=== PATIENT | female | born 1985 ===

== ENCOUNTER 2016-08-01 11:10 | Emergency (ER) | payer MEDICAID ==
[2016-08-01 11:24] VITALS: BP 109/68; PULSE 97; TEMP 97; O2SAT 100
[2016-08-01 11:25] VITALS: BMI 25.1
--- NOTE | 2016-08-01 11:59 | ED PDOC ---
HPI: Skin/Bite Injury Time Seen by Provider: 08/01/16 11:48 History Per: Patient (Painful vesicular rash on inner thighs extending to perineal area. Noticed about 1 weak ago. Initially started as vesicles clear fluid. Last time sexually active 3 weeks ago. Denies vaginal discharge.) Onset/Duration Of Symptoms: Other (1 week) Current Symptoms Are (Timing): Still Present Location Of Injury: Right: Labia, Perineum, Left: Labia, Perineum Quality Of Symptoms: Painful Severity: Moderate Past Medical History Vital Signs: Last Vital Signs Temp 97 F L 08/01/16 11:23 Pulse 97 H 08/01/16 11:23 Resp BP 109/68 08/01/16 11:23 Pulse Ox 100 08/01/16 11:23 - Medical History PMH: Back Problems (chronic lower back pain, see HPI ), Migraine - Family History Family History: States: Unknown Family Hx - Immunization History Hx Tetanus Toxoid Vaccination: No Hx Influenza Vaccination: No Hx Pneumococcal Vaccination: No - Home Medications Home Medications: Ambulatory Orders Medication Instructions Recorded Acetaminophen/Oxycodone Hydr 1 tab PO Q8 #15 tab 12/29/12 [Percocet 325 mg-5 mg] Clindamycin [Cleocin] 300 mg PO QID #28 cap 12/29/12 DiphenhydrAMINE [Benadryl] 25 mg PO Q4H PRN #30 cap 12/29/12 Ondansetron [Zofran Odt] 4 mg PO Q6H PRN #30 odt 12/29/12 Penicillin Vk 12/29/12 Tramadol 12/29/12 Acetaminophen/Oxycodone Hydr 1 tab PO Q6 PRN #15 tab 12/11/13 [Percocet 325 mg-5 mg] Tramadol HCl [Ultram] 50 mg PO Q6 #15 tab 09/14/15 Amoxicillin/Clavulanate [Augmentin 1 tab PO Q12 #13 tab 11/11/15 875 MG-125 MG] Oxycodone HCl/Acetaminophen 1 tab PO Q6 PRN #12 tab 11/11/15 [Percocet 325 mg-5 mg] Clindamycin [Cleocin] 300 mg PO TID #30 cap 11/24/15 Ibuprofen [Motrin Tab] 800 mg PO Q8 PRN #20 tab 11/24/15 Ibuprofen [Motrin] 600 mg PO TID PRN #30 tab 02/18/16 diaZEpam [Valium] 5 mg PO Q8 PRN #12 tab 02/18/16 traMADol [Ultram] 50 mg PO Q8 PRN #12 tab 02/18/16 Valacyclovir HCl [Valtrex] 1 gm PO TID #30 tablet 08/01/16 traMADol [Ultram] 50 mg PO Q8 #10 tab 08/01/16 - Allergies Allergies/Adverse Reactions: Allergies Allergy/AdvReac Type Severity Reaction Status Date / Time No Known Allergies Allergy Verified 02/18/16 19:13 Review of Systems Constitutional: Negative for: Fever Genitourinary Female: Positive for: Rash. Negative for: Vaginal Discharge Physical Exam - Physical Exam Appears: Positive for: Non-toxic, No Acute Distress Pelvic Exam: Positive for: Other (Vesicular rash labia majora bilat extending to perineum. No discharge. No crusting) - ECG O2 Sat by Pulse Oximetry: 100 Disposition - Clinical Impression Clinical Impression: Genital herpes - Patient ED Disposition Is Patient to be Admitted: No Counseled Patient/Family Regarding: Diagnosis, Need For Followup, Rx Given - Disposition [facility] Disposition: Routine/Home Disposition Time: 12:02 Condition: FAIR Prescriptions: traMADol [Ultram] 50 mg PO Q8 #10 tab Valacyclovir HCl [Valtrex] 1 gm PO TID #30 tablet Instructions: Genital Herpes Simplex (ED)
== END 2016-08-01 12:30 | disposition home or self-care (01) ==
LOC: H.ER 11:10
DX: B00.1 Herpesviral vesicular dermatitis (principal)

== ENCOUNTER 2016-10-12 20:34 | Emergency (ER) | payer MEDICAID ==
[2016-10-12 20:34] VITALS: BMI 25.1
[2016-10-12 20:44] VITALS: BP 93/59; PULSE 92; RESP 18; TEMP 98.4; O2SAT 98
[2016-10-12] MEDS ORDERED: Sodium Chloride 0.9% 1,000 ML IV STA (22:45)
--- NOTE | 2016-10-12 22:46 | ED PDOC ---
HPI: Abdomen Time Seen by Provider: 10/12/16 22:21 Chief Complaint (Nursing): Abdominal Pain Chief Complaint (Provider): abdominal pain History Per: Patient History/Exam Limitations: no limitations Onset/Duration Of Symptoms: Days (1) Current Symptoms Are (Timing): Still Present Location Of Pain/Discomfort: RUQ Quality Of Discomfort: Sharp, "Pain" Associated Symptoms: Nausea Additional History Per: Patient Additional Complaint(s): 30 y/o female presents for eval of intermittent right upper abdominal pain x 1 day. Associated one episode of nonbilious vomiting. Denies fever, chest pain, shortness of breath, palpitations, recent travel, leg pain/swelling. No relief with Tylenol PO. Past Medical History Reviewed: Historical Data, Nursing Documentation, Vital Signs Vital Signs: Last Vital Signs Temp 98.4 F 10/12/16 20:41 Pulse 92 H 10/12/16 20:41 Resp 18 10/12/16 20:41 BP 93/59 L 10/12/16 20:41 Pulse Ox 98 10/13/16 00:20 - Medical History PMH: Back Problems (chronic lower back pain, see HPI ), Migraine - Family History Family History: States: Unknown Family Hx - Immunization History Hx Tetanus Toxoid Vaccination: No Hx Influenza Vaccination: No Hx Pneumococcal Vaccination: No - Home Medications Home Medications: Ambulatory Orders Medication Instructions Recorded Tramadol HCl/Acetaminophen 1 each PO Q4 #10 tablet 09/07/16 [Ultracet Tablet] Ondansetron ODT [Zofran ODT] 4 mg PO Q8 PRN #10 odt 10/13/16 traMADol [Ultram] 50 mg PO Q8 PRN #12 tab 10/13/16 - Allergies Allergies/Adverse Reactions: Allergies Allergy/AdvReac Type Severity Reaction Status Date / Time No Known Allergies Allergy Verified 10/12/16 23:27 Review of Systems ROS Statement: Except As Marked, All Systems Reviewed And Found Negative Gastrointestinal: Positive for: Abdominal Pain Physical Exam - Reviewed Nursing Documentation Reviewed: Yes Vital Signs Reviewed: Yes - Physical Exam Appears: Positive for: Well, Non-toxic, No Acute Distress Head Exam: Positive for: ATRAUMATIC, NORMAL INSPECTION, NORMOCEPHALIC Skin: Positive for: Normal Color Eye Exam: Positive for: Normal appearance ENT: Positive for: Normal ENT Inspection Cardiovascular/Chest: Positive for: Regular Rate, Rhythm Respiratory: Positive for: Normal Breath Sounds Gastrointestinal/Abdominal: Positive for: Bowel Sounds, Soft, Tenderness (RUQ) Back: Positive for: Normal Inspection Extremity: Positive for: Normal ROM Neurologic/Psych: Positive for: Alert, Oriented - Laboratory Results Result Diagrams: 10/12/16 23:40 10/12/16 23:40 - ECG O2 Sat by Pulse Oximetry: 98 - Progress ED Course And Treament: labs, urine, RUQ u/s, IV toradol, IV fluids EXAM: US Abdomen Limited, Right Upper Quadrant CLINICAL HISTORY: 30 years old, female; Pain; Abdominal pain; Epigastric; Additional info: Ruq pain TECHNIQUE: Real-time ultrasound of the right upper quadrant with image documentation. COMPARISON: No relevant prior studies available. FINDINGS: Liver: Enlarged, 18.4 cm. No mass. No intrahepatic ductal dilatation. Gallbladder: Contracted. Gallstones. No wall thickening. No pericholecystic fluid. No sonographic Sevilla's sign. Common bile duct: No dilatation. No stones. Pancreas: Unremarkable as visualized. Right kidney: Normal echogenicity. No hydronephrosis. IMPRESSION: 1. Cholelithiasis. 2. Incidental/non-acute findings are described above. Patient states little improvement of pain after toradol given, Percocet PO ordered. On re-eval, patient states pain improved. Patient educated on findings, discharged with rx Tramadol, Zofran. Advised follow up PMD/surgery. Diet modification. Return to ED for worsening/concerning symptoms. Disposition - Clinical Impression Clinical Impression: Gallstones - Patient ED Disposition Is Patient to be Admitted: No Counseled Patient/Family Regarding: Studies Performed, Diagnosis, Need For Followup, Rx Given - Disposition Referrals: Marcos Taylor MD [Staff Provider] - Disposition: Routine/Home Disposition Time: 01:30 Condition: IMPROVED Additional Instructions: Follow up with primary doctor in 2-3 days. Take Ibuprofen (motrin) every 6-8 hours as needed for moderate pain. Take Tramadol as directed, as needed for severe pain only. Return to ED for worsening/concerning symptoms. Prescriptions: Ondansetron ODT [Zofran ODT] 4 mg PO Q8 PRN #10 odt PRN Reason: Nausea/Vomiting traMADol [Ultram] 50 mg PO Q8 PRN #12 tab PRN Reason: Pain, Severe (8-10) Instructions: Biliary Colic (ED), Gallstones (ED)
[2016-10-12 23:43] LABS: BASO # 0.1 K/uL (0.0-0.2); BASO % 0.7 % (0.0-2.0); EOS # 0.2 K/uL (0.0-0.7); EOS % 1.4 % (0.0-4.0); HEMATOCRIT 39.2 % (34.0-47.0); LYMPH # 3.7 K/uL (1.0-4.3); LYMPH % 31.6 % (20.0-40.0); MEAN CELL VOLUME 85.9 fl (81.0-99.0); MEAN CORPUSCULAR HEMOGLOBIN 27.2 pg (27.0-31.0); MEAN CORPUSCULAR HGB CONC 31.6 g/dL (33.0-37.0); MEAN PLATELET VOLUME 8.6 fl (7.2-11.7); MONO # 0.6 K/uL (0.0-0.8); MONO % 5.4 % (0.0-10.0); NEUT # 7.1 K/uL (1.8-7.0); NEUT % 60.9 % (50.0-75.0); NRBC % 0.1 % (0.0-0.0); RED CELL DISTRIBUTION WIDTH 14.1 % (11.5-14.5); WHITE BLOOD COUNT 11.7 K/uL (4.8-10.8)
[2016-10-12 23:50] LABS: ALB/GLOB RATIO 1.5 (1.0-2.1); ALKALINE PHOSPHATASE 56 U/L (38-126); ALT/SGPT 41 U/L (9-52); AST/SGOT 19 U/L (14-36); BILIRUBIN,TOTAL 0.4 mg/dl (0.2-1.3); BLOOD UREA NITROGEN 20 mg/dl (7-17); CALCIUM 9.4 mg/dL (8.4-10.2); CARBON DIOXIDE 25 mmol/L (22-30); CHLORIDE 107 mmol/L (98-107); GFR AFRICAN-AMERICAN > 60; GLUCOSE,RANDOM 88 mg/dL (65-105); LIPASE 91 U/L (23-300); POTASSIUM 4.4 MMOL/L (3.6-5.0); SODIUM 143 mmol/l (132-148); TOTAL PROTEIN 7.9 G/DL (6.3-8.2)
--- NOTE | 2016-10-13 00:05 | US ---
EXAM: US Abdomen Limited, Right Upper Quadrant CLINICAL HISTORY: 30 years old, female; Pain; Abdominal pain; Epigastric; Additional info: Ruq pain TECHNIQUE: Real-time ultrasound of the right upper quadrant with image documentation. COMPARISON: No relevant prior studies available. FINDINGS: Liver: Enlarged, 18.4 cm. No mass. No intrahepatic ductal dilatation. Gallbladder: Contracted. Gallstones. No wall thickening. No pericholecystic fluid. No sonographic Sevilla's sign. Common bile duct: No dilatation. No stones. Pancreas: Unremarkable as visualized. Right kidney: Normal echogenicity. No hydronephrosis. IMPRESSION: 1. Cholelithiasis. 2. Incidental/non-acute findings are described above.
[2016-10-13 00:10] LABS: PARTIAL THROMBOPLASTIN TIME 27.6 Seconds (25.6-37.1)
[2016-10-13] MEDS ORDERED: Oxycodone/Acetaminophen 5/325 mg Tab PO ONE (00:30)
== END 2016-10-13 01:57 | disposition home or self-care (01) ==
LOC: H.ER 20:34
DX: K80.20 Calculus of gallbladder without cholecystitis without obstruction (principal); G89.29 Other chronic pain; R11.10 Vomiting, unspecified

== ENCOUNTER 2016-10-17 19:50 | Inpatient (IN) | payer MEDICAID ==
[2016-10-17 19:50] VITALS: BMI 25.1
--- NOTE | 2016-10-17 21:14 | ED PDOC ---
HPI: Abdomen Time Seen by Provider: 10/17/16 20:35 Chief Complaint (Nursing): Abdominal Pain Chief Complaint (Provider): Abdominal pain History Per: Patient Additional Complaint(s): Pt. is a 30 yo female, no PMH, presents to ED for evaluation of RUQ pain radiating into back x2 days. Pt. was seen in ED 2 days ago for same complaint and diagnosed with cholelithiasis. No relief at home with RX Tramadol and Zofran. Was seen by PMD and was told to come to ED for re-evaluation due to worsening pain Past Medical History Reviewed: Nursing Documentation, Vital Signs Vital Signs: Last Vital Signs Temp 98.4 F 10/17/16 20:23 Pulse 82 10/17/16 20:23 Resp 16 10/17/16 20:23 BP 151/76 H 10/17/16 20:23 Pulse Ox 100 10/17/16 21:14 - Medical History PMH: Back Problems (chronic lower back pain, see HPI ), Migraine - Surgical History Surgical History: No Surg Hx - Family History Family History: States: Unknown Family Hx - Living Arrangements Living Arrangements: With Family - Social History Current smoker - smoking cessation education provided: No Alcohol: None Drugs: Denies - Immunization History Hx Tetanus Toxoid Vaccination: No Hx Influenza Vaccination: No Hx Pneumococcal Vaccination: No - Home Medications Home Medications: Ambulatory Orders Medication Instructions Recorded Tramadol HCl/Acetaminophen 1 each PO Q4 #10 tablet 09/07/16 [Ultracet Tablet] Ondansetron ODT [Zofran ODT] 4 mg PO Q8 PRN #10 odt 10/13/16 traMADol [Ultram] 50 mg PO Q8 PRN #12 tab 10/13/16 - Allergies Allergies/Adverse Reactions: Allergies Allergy/AdvReac Type Severity Reaction Status Date / Time No Known Allergies Allergy Verified 10/17/16 20:26 Review of Systems ROS Statement: Except As Marked, All Systems Reviewed And Found Negative Gastrointestinal: Positive for: Nausea, Abdominal Pain Physical Exam - Reviewed Nursing Documentation Reviewed: Yes Vital Signs Reviewed: Yes - Physical Exam Appears: Positive for: Non-toxic, No Acute Distress, Uncomfortable Head Exam: Positive for: ATRAUMATIC, NORMAL INSPECTION, NORMOCEPHALIC Skin: Positive for: Normal Color, Warm, DRY Eye Exam: Positive for: EOMI, Normal appearance, PERRL ENT: Positive for: Normal ENT Inspection Neck: Positive for: Normal, Painless ROM Cardiovascular/Chest: Positive for: Regular Rate, Rhythm Respiratory: Positive for: CNT, Normal Breath Sounds Gastrointestinal/Abdominal: Positive for: Bowel Sounds, Soft, Tenderness ((+) Sevilla's sign) Back: Positive for: Normal Inspection Extremity: Positive for: Normal ROM Neurologic/Psych: Positive for: Alert, Oriented - Laboratory Results Result Diagrams: 10/17/16 21:36 10/17/16 21:36 - ECG O2 Sat by Pulse Oximetry: 100 Medical Decision Making Medical Decision Making: Iv access established and treatment initiated with IVF, Toradol and Zofran. On re-eval, Pt still with complaint sof pain. Administered 2 mg Morphine IV. CBC and COMP resulted, WBC 11.6 US IMPRESSION: Fatty infiltration of an enlarged liver. Multiple stones within the gallbladder, which is contracted, consistent with postprandial state Otherwise, unremarkable sonographic evaluation of the right upper quadrant, as detailed above. Limited evaluation of the pancreas, secondary to overlying bowel gas. Surgeon, Dr. Chaves, consulted and case discussed. Agreed with admission at this time. Hospitalist contacted and Dr. Licea presented to see and evaluate Pt at bedside. Arrangements made for admission. psychiatry resident contacted and made aware of case. Disposition - Clinical Impression Clinical Impression: Cholelithiasis - Patient ED Disposition Is Patient to be Admitted: Yes - Disposition Disposition Time: 01:19 Condition: STABLE
[2016-10-17 21:41] LABS: BASO # 0.1 K/uL (0.0-0.2); BASO % 0.9 % (0.0-2.0); EOS # 0.1 K/uL (0.0-0.7); EOS % 1.1 % (0.0-4.0); HEMATOCRIT 36.1 % (34.0-47.0); LYMPH # 3.3 K/uL (1.0-4.3); LYMPH % 28.7 % (20.0-40.0); MEAN CELL VOLUME 85.9 fl (81.0-99.0); MEAN CORPUSCULAR HEMOGLOBIN 27.4 pg (27.0-31.0); MEAN CORPUSCULAR HGB CONC 31.9 g/dL (33.0-37.0); MEAN PLATELET VOLUME 8.2 fl (7.2-11.7); MONO # 0.7 K/uL (0.0-0.8); MONO % 6.2 % (0.0-10.0); NEUT # 7.3 K/uL (1.8-7.0); NEUT % 63.1 % (50.0-75.0); RED CELL DISTRIBUTION WIDTH 13.7 % (11.5-14.5); WHITE BLOOD COUNT 11.6 K/uL (4.8-10.8)
[2016-10-17 21:59] LABS: RBC URINE 3 /hpf (0-3); URINE BACTERIA RARE (<OCC); URINE BILIRUBIN NEGATIVE (NEGATIVE); URINE BLOOD NEGATIVE (NEGATIVE); URINE COLOR YELLOW (YELLOW); URINE GLUCOSE (UA) NEG (Normal); URINE KETONE NEGATIVE (NEGATIVE); URINE LEUKOCYTE ESTERASE NEG Leu/uL (Negative); URINE PROTEIN 30 mg/dL (NEGATIVE); WBC URINE 3 /hpf (0-5)
[2016-10-17 22:11] LABS: ALB/GLOB RATIO 1.3 (1.0-2.1); ALKALINE PHOSPHATASE 54 U/L (38-126); ALT/SGPT 35 U/L (9-52); AMYLASE 97 U/L (30-110); AST/SGOT 21 U/L (14-36); BILIRUBIN,TOTAL 0.3 mg/dl (0.2-1.3); BLOOD UREA NITROGEN 14 mg/dl (7-17); CALCIUM 8.7 mg/dL (8.4-10.2); CARBON DIOXIDE 26 mmol/L (22-30); CHLORIDE 107 mmol/L (98-107); GFR AFRICAN-AMERICAN > 60; GLUCOSE,RANDOM 100 mg/dL (65-105); LIPASE 67 U/L (23-300); POTASSIUM 3.8 MMOL/L (3.6-5.0); SODIUM 141 mmol/l (132-148); TOTAL PROTEIN 6.9 G/DL (6.3-8.2)
--- NOTE | 2016-10-17 23:12 | US ---
EXAM: US Abdomen Limited, Right Upper Quadrant CLINICAL HISTORY: 30 years old, female; Pain; Abdominal pain; Epigastric; Additional info: R/O acute yanick TECHNIQUE: Real-time ultrasound of the right upper quadrant with image documentation. COMPARISON: US - RIGHT UPPER QUADRANT 10/12/2016 10:56:10 PM FINDINGS: Liver: Increased in echogenicity and size measuring 18.4 cm in longitudinal dimension. No mass. No intrahepatic bile duct dilation. Gallbladder: Contracted, with multiple shadowing stones, consistent with postprandial state. Common bile duct: No stones. No dilation, measuring 3 mm. Pancreas: Visualization of the pancreas is limited by overlying bowel gas. Right kidney: Unremarkable echogenicity and size measuring 11.4 x 5.4 x 4.3 cm. No obstructing stones. No solid mass. No hydronephrosis. IMPRESSION: Fatty infiltration of an enlarged liver. Multiple stones within the gallbladder, which is contracted, consistent with postprandial state Otherwise, unremarkable sonographic evaluation of the right upper quadrant, as detailed above. Limited evaluation of the pancreas, secondary to overlying bowel gas.
--- NOTE | 2016-10-18 00:15 | CP.PCM.CON ---
<Luke Chavez Mariano - Last Filed: 10/18/16 06:25> History of Present Illness - History of Present Illness History of Present Illness: General Surgery: Dr Catalan Pt is a 30F with no significant PMH/PSH. Recently presented to ED 3 days ago for RUQ pain with N/V. Dx with cholelithiasis and sent home with tramadol and outpatient follow up. Pt pain did not subside so her PMD sent her back to [facility] for re-evaluation. Pt reports she has continued to have intermittent RUQ pain, with associated nausea, which radiates to the right upper back. The pain is worse after eating and becomes a 10/10. It has become progressively more consistent over the past 24 hours. She has been unable to tolerate PO intake since monday morning. She denies any associated f/c, sob, chest pain, diarrhea or constipation, dysuria, or abnormal menstrual bleeding. PMH: none PSH: none LMP: July - on implant control LUE Review of Systems - Review of Systems All systems: reviewed and no additional remarkable complaints except (as per hpi ) Past Patient History - Past Social History Smoking Status: Never Smoked - NEUROLOGICAL Hx Migraine: Yes - PSYCHIATRIC Hx Substance Use: No - ANESTHESIA Hx Anesthesia: No Hx Anesthesia Reactions: No Meds Allergies/Adverse Reactions: Allergies Allergy/AdvReac Type Severity Reaction Status Date / Time No Known Allergies Allergy Verified 10/17/16 20:26 - Medications Medications: Current Medications Ampicillin Sodium/Sulbactam (Sodium 1.5 gm/ Sodium Chloride) 100 mls @ 100 mls/ hr IVPB Q6 RAMANDEEP Sodium Chloride (Sodium Chloride 0.9%) 1,000 mls @ 100 mls/hr IV .Q10H RAMANDEEP Stop: 10/19/16 00:11 Morphine Sulfate (Morphine) 4 mg IVP Q4 PRN PRN Reason: Pain, moderate (4-7) Ondansetron HCl (Zofran Inj) 4 mg IVP Q4 PRN PRN Reason: Nausea/Vomiting Physical Exam - Constitutional Appears: Non-toxic, No Acute Distress - Eye Exam Eye Exam: absent: Scleral icterus - ENT Exam ENT Exam: Mucous Membranes Dry - Respiratory Exam Respiratory Exam: absent: Accessory Muscle Use, Respiratory Distress - Cardiovascular Exam Cardiovascular Exam: REGULAR RHYTHM - GI/Abdominal Exam GI & Abdominal Exam: Soft, Tenderness (RUQ >> epigastric). absent: Distended, Firm, Guarding, Rebound, Rigid - Extremities Exam Extremities exam: Negative for: calf tenderness, pedal edema - Neurological Exam Neurological exam: Alert, Oriented x3 - Psychiatric Exam Psychiatric exam: Normal Affect, Normal Mood - Skin Skin Exam: Normal Color, Warm Results - Vital Signs Recent Vital Signs: Last Vital Signs Temp 98.4 F 10/17/16 20:23 Pulse 82 10/17/16 20:23 Resp 16 10/17/16 20:23 BP 151/76 H 10/17/16 20:23 Pulse Ox 100 10/17/16 21:14 - Labs Result Diagrams: 10/17/16 21:36 10/17/16 21:36 Labs: Laboratory Results - last 24 hr 10/17/16 10/17/16 10/17/16 21:36 21:36 21:36 WBC 11.6 H RBC 4.20 Hgb 11.5 L Hct 36.1 MCV 85.9 MCH 27.4 MCHC 31.9 L RDW 13.7 Plt Count 251 MPV 8.2 Neut % (Auto) 63.1 Lymph % (Auto) 28.7 Greer % (Auto) 6.2 Eos % (Auto) 1.1 Baso % (Auto) 0.9 Neut # 7.3 H Lymph # 3.3 Greer # 0.7 Eos # 0.1 Baso # 0.1 Sodium 141 Potassium 3.8 Chloride 107 Carbon Dioxide 26 Anion Gap 12 BUN 14 Creatinine 0.6 L Est GFR ( Amer) > 60 Est GFR (Non-Af Amer) > 60 Random Glucose 100 Calcium 8.7 Total Bilirubin 0.3 AST 21 ALT 35 Alkaline Phosphatase 54 Total Protein 6.9 Albumin 3.9 Globulin 3.0 Albumin/Globulin Ratio 1.3 Amylase 97 Lipase 67 Urine Color Yellow Urine Clarity Cloudy Urine pH 6.0 Ur Specific Darrington 1.030 Urine Protein 30 Urine Glucose (UA) Neg Urine Ketones Negative Urine Blood Negative Urine Nitrate Negative Urine Bilirubin Negative Urine Urobilinogen 2.0 H Ur Leukocyte Esterase Neg Urine RBC (Auto) 3 Urine Microscopic WBC 3 Ur Squamous Epith Cells 17 H Urine Bacteria Rare Assessment & Plan - Assessment and Plan (Free Text) Assessment: 30F with symptomatic cholelithiasis Plan: NPO abx IV fluids anti-emetics and pain control PRN will likely need laparoscopic cholecystectomy will d/w attending Dr Hossein Chavez, PGY2 - Date & Time Date: 10/18/16 Time: 06:31 <Po Catalan - Last Filed: 10/18/16 11:38> History of Present Illness - History of Present Illness History of Present Illness: Patient was seen and examined at the bedside. Agree with resident's note above. Meds - Medications Medications: Current Medications Ampicillin Sodium/Sulbactam (Sodium 1.5 gm/ Sodium Chloride) 100 mls @ 100 mls/ hr IVPB Q6 RAMANDEEP Last Admin: 10/18/16 10:32 Dose: 100 mls/hr Sodium Chloride (Sodium Chloride 0.9%) 1,000 mls @ 100 mls/hr IV .Q10H RAMANDEEP Stop: 10/19/16 00:11 Morphine Sulfate (Morphine) 4 mg IVP Q3H PRN PRN Reason: Pain, moderate (4-7) Last Admin: 10/18/16 10:29 Dose: 4 mg Nicotine (Nicoderm Cq) 1 patch TD DAILY [facility] Last Admin: 10/18/16 08:33 Dose: 1 patch Ondansetron HCl (Zofran Inj) 4 mg IVP Q4 PRN PRN Reason: Nausea/Vomiting Results - Vital Signs Recent Vital Signs: Last Vital Signs Temp 97.8 F 10/18/16 08:35 Pulse 64 10/18/16 08:35 Resp 20 10/18/16 08:35 BP 100/64 10/18/16 08:35 Pulse Ox 99 10/18/16 08:35 - Labs Result Diagrams: 10/18/16 05:55 10/18/16 05:55 Labs: Laboratory Results - last 24 hr 10/18/16 10/18/16 10/18/16 03:19 05:55 05:55 WBC 10.6 RBC 4.01 Hgb 11.2 L Hct 34.5 MCV 85.9 MCH 28.0 MCHC 32.6 L RDW 13.7 Plt Count 232 MPV 8.5 Neut % (Auto) 56.5 Lymph % (Auto) 35.7 Greer % (Auto) 6.1 Eos % (Auto) 1.4 Baso % (Auto) 0.3 Neut # 6.0 Lymph # 3.8 Greer # 0.6 Eos # 0.1 Baso # 0.0 PT 11.8 INR 1.0 APTT 27.7 Sodium 142 Potassium 3.8 Chloride 106 Carbon Dioxide 28 Anion Gap 11 BUN 13 Creatinine 0.7 Est GFR ( Amer) > 60 Est GFR (Non-Af Amer) > 60 Random Glucose 80 Calcium 8.3 L Total Bilirubin 0.5 AST 15 ALT 34 Alkaline Phosphatase 47 Total Protein 6.3 Albumin 3.6 Globulin 2.7 Albumin/Globulin Ratio 1.3 Beta HCG, Quant < 2.39 - Imaging and Cardiology US - abdomen Status: Image reviewed by me, Report reviewed by me Assessment & Plan - Assessment and Plan (Free Text) Plan: - Clear liquid diet - NPO after midnight - IV fluids - pain control - Unasyn - To OR tomorrow in am for cholecystectomy - Will follow
[2016-10-18] MEDS ORDERED: Sodium Chloride 0.9% 1,000 ML IV STA (00:30)
--- NOTE | 2016-10-18 01:29 | CP.PCM.HP ---
History of Present Illness - History of Present Illness History of Present Illness: PCP: Julio C Brito MD Chief Complaint: RUQ abdominal Pain HPI: 30 years old female with hx of Migraine and chronic lower back pain was diagnosed and discharged with Cholelithiasis 2 days ago in ED. She now returns with the persistent, sharp, RUQ abdominal pain radiating to the right back , not relieved with Toradol. she was seen by her PMD who advised her to return to the ED for evaluation. She refers nausea but no vomits , headaches nor fever. PMH: Migraine; Chronic low back pain; Cholelithiasis PSH: [place] tooth extraction SH: Smokes 8-9 cigarettes; No illegal drug use; No alcohol; Works at [employer] FH: Unknown family hx Allergies: NKDA Present on Admission - Present on Admission Any Indicators Present on Admission: No History of DVT/PE: No History of Uncontrolled Diabetes: No Urinary Catheter: No Decubitus Ulcer Present: No Review of Systems - Constitutional Constitutional: absent: Anorexia, Chills, Fever, Frequent Falls - EENT Eyes: Requires Corrective Lenses. absent: Blurred Vision, Dry Eye, Floaters, Itchy Eyes Ears: absent: Decreased Hearing, Ear Discharge, Ear Pain, Tinnitus Nose/Mouth/Throat: absent: Epistaxis, Nasal Congestion, Nasal Discharge - Cardiovascular Cardiovascular: absent: Chest Pain, Claudication, Dyspnea, Edema - Respiratory Respiratory: absent: Cough, Dyspnea, Wheezing, Stridor - Gastrointestinal Gastrointestinal: Abdominal Pain, Nausea. absent: Bloating, Constipation, Diarrhea, Vomiting - Genitourinary Genitourinary: absent: Dysuria, Flank Pain, Hematuria - Musculoskeletal Musculoskeletal: absent: Arthralgias, Myalgias, Numbness, Stiffness - Integumentary Integumentary: absent: Pruritus, Rash, Skin Ulcer, Sores, Striae, Swelling - Neurological Neurological: absent: Confusion, Dizziness, Focal Weakness, Headaches - Psychiatric Psychiatric: absent: Anxiety, Depression, Panic Attacks - Endocrine Endocrine: absent: Palpitations, Polydipsia, Polyphagia, Polyuria - Hematologic/Lymphatic Hematologic: absent: Easy Bleeding, Easy Bruising Past Patient History - Past Medical History & Family History Past Medical History?: Yes - Past Social History Smoking Status: Light Smoker < 10 Cigarettes Daily Chewing Tobacco Use: No Cigar Use: No Alcohol: None Drugs: Denies Home Situation {Lives}: With Family - CARDIAC Hx Cardiac Disorders: No - PULMONARY Hx Respiratory Disorders: No - NEUROLOGICAL Hx Migraine: Yes - HEENT Hx HEENT Problems: No - RENAL Hx Chronic Kidney Disease: No - ENDOCRINE/METABOLIC Hx Endocrine Disorders: No - HEMATOLOGICAL/ONCOLOGICAL Hx Blood Disorders: No - INTEGUMENTARY Hx Dermatological Problems: No - MUSCULOSKELETAL/RHEUMATOLOGICAL Hx Musculoskeletal Disorders: No - GENITOURINARY/GYNECOLOGICAL Hx Genitourinary Disorders: No - PSYCHIATRIC Hx Psychophysiologic Disorder: No Hx Substance Use: No - SURGICAL HISTORY Hx Surgeries: No - ANESTHESIA Hx Anesthesia: No Hx Anesthesia Reactions: No Meds Allergies/Adverse Reactions: Allergies Allergy/AdvReac Type Severity Reaction Status Date / Time No Known Allergies Allergy Verified 10/17/16 20:26 Physical Exam - Constitutional Appears: No Acute Distress - Head Exam Head Exam: NORMOCEPHALIC - Eye Exam Eye Exam: EOMI, Normal appearance Pupil Exam: NORMAL ACCOMODATION, PERRL - ENT Exam ENT Exam: Mucous Membranes Moist, Normal Exam, Normal External Ear Exam, Normal Oropharynx - Neck Exam Neck exam: Positive for: Full Rom, Normal Inspection. Negative for: Lymphadenopathy, Tenderness - Respiratory Exam Respiratory Exam: Clear to Auscultation Bilateral. absent: Rales, Wheezes, NORMAL BREATHING PATTERN - Cardiovascular Exam Cardiovascular Exam: +S1, +S2. absent: Gallop, REGULAR RHYTHM, RRR - GI/Abdominal Exam Additional comments: Flat, Soft, tender at the RUQ, no rebound no guarding, no viceromegaleas - Rectal Exam Rectal Exam: Deferred - Extremities Exam Extremities exam: Positive for: calf tenderness, normal inspection. Negative for: full ROM, joint swelling - Back Exam Back exam: NORMAL INSPECTION. absent: CVA tenderness (L), CVA tenderness (R) - Neurological Exam Neurological exam: Alert, CN II-XII Intact, Oriented x3, Reflexes Normal - Psychiatric Exam Psychiatric exam: Anxious, Normal Affect, Normal Mood - Skin Skin Exam: Dry, Intact, Normal Color, Warm Results - Vital Signs Recent Vital Signs: Last Vital Signs Temp 98.4 F 10/17/16 20:23 Pulse 82 10/17/16 20:23 Resp 16 10/17/16 20:23 BP 151/76 H 10/17/16 20:23 Pulse Ox 100 10/18/16 01:25 - Labs Result Diagrams: 10/17/16 21:36 10/17/16 21:36 Labs: Laboratory Results - last 24 hr 10/17/16 10/17/16 10/17/16 21:36 21:36 21:36 WBC 11.6 H RBC 4.20 Hgb 11.5 L Hct 36.1 MCV 85.9 MCH 27.4 MCHC 31.9 L RDW 13.7 Plt Count 251 MPV 8.2 Neut % (Auto) 63.1 Lymph % (Auto) 28.7 [place] % (Auto) 6.2 Eos % (Auto) 1.1 Baso % (Auto) 0.9 Neut # 7.3 H Lymph # 3.3 [place] # 0.7 Eos # 0.1 Baso # 0.1 Sodium 141 Potassium 3.8 Chloride 107 Carbon Dioxide 26 Anion Gap 12 BUN 14 Creatinine 0.6 L Est GFR ( Amer) > 60 Est GFR (Non-Af Amer) > 60 Random Glucose 100 Calcium 8.7 Total Bilirubin 0.3 AST 21 ALT 35 Alkaline Phosphatase 54 Total Protein 6.9 Albumin 3.9 Globulin 3.0 Albumin/Globulin Ratio 1.3 Amylase 97 Lipase 67 Urine Color Yellow Urine Clarity Cloudy Urine pH 6.0 Ur Specific [place] 1.030 Urine Protein 30 Urine Glucose (UA) Neg Urine Ketones Negative Urine Blood Negative Urine Nitrate Negative Urine Bilirubin Negative Urine Urobilinogen 2.0 H Ur Leukocyte Esterase Neg Urine RBC (Auto) 3 Urine Microscopic WBC 3 Ur Squamous Epith Cells 17 H Urine Bacteria Rare - Imaging and Cardiology US - abdomen Status: Report reviewed by me Additional comment: FINDINGS: Liver: Increased in echogenicity and size measuring 18.4 cm in longitudinal dimension. No mass. No intrahepatic bile duct dilation. Gallbladder: Contracted, with multiple shadowing stones, consistent with postprandial state. Common bile duct: No stones. No dilation, measuring 3 mm. Pancreas: Visualization of the pancreas is limited by overlying bowel gas. Right kidney: Unremarkable echogenicity and size measuring 11.4 x 5.4 x 4.3 cm. No obstructing stones. No solid mass. No hydronephrosis. IMPRESSION: Fatty infiltration of an enlarged liver. Multiple stones within the gallbladder, which is contracted, consistent with postprandial state Otherwise, unremarkable sonographic evaluation of the right upper quadrant, as detailed above. Limited evaluation of the pancreas, secondary to overlying bowel gas. Assessment & Plan - Assessment and Plan (Free Text) Assessment: #. Biliary Colic #. Cholelithi #. Migraine Plan: 30 years old female with hx of Migraine and chronic lower back pain was diagnosed and discharged with Cholelithiasis 2 days ago in ED. Returns with persistent, sharp, RUQ abdominal pain radiating to the right back , not relieved with Toradol. #. Biliary Colic secondary to the Cholelithiasis, r/o Cholecystitis - Consult Surgery Dr slade - Antibiotics Unasyn Q6hrs - Pain management - NPO - IV fluids #. Migraine - Pain management #. Stress ulcer prophylaxis with Pepcid #. DVT prophylaxis with SCD #. Code Status: Full - Date & Time Date: 10/18/16 Time: 01:
[2016-10-18 04:08] LABS: PARTIAL THROMBOPLASTIN TIME 27.7 Seconds (25.6-37.1)
[2016-10-18] MEDS: Ampicillin/Sulbactam 1.5 GM in Sodium Chloride 0.9% 100 ML IVPB SCH ×4 (04:10→21:18)
[2016-10-18 07:33] LABS: ALB/GLOB RATIO 1.3 (1.0-2.1); ALKALINE PHOSPHATASE 47 U/L (38-126); ALT/SGPT 34 U/L (9-52); AST/SGOT 15 U/L (14-36); BILIRUBIN,TOTAL 0.5 mg/dl (0.2-1.3); BLOOD UREA NITROGEN 13 mg/dl (7-17); CALCIUM 8.3 mg/dL (8.4-10.2); CARBON DIOXIDE 28 mmol/L (22-30); CHLORIDE 106 mmol/L (98-107); GFR AFRICAN-AMERICAN > 60; GLUCOSE,RANDOM 80 mg/dL (65-105); POTASSIUM 3.8 MMOL/L (3.6-5.0); SODIUM 142 mmol/l (132-148); TOTAL PROTEIN 6.3 G/DL (6.3-8.2)
[2016-10-18 07:54] LABS: BASO % 0.3 % (0.0-2.0); EOS # 0.1 K/uL (0.0-0.7); EOS % 1.4 % (0.0-4.0); HEMATOCRIT 34.5 % (34.0-47.0); LYMPH # 3.8 K/uL (1.0-4.3); LYMPH % 35.7 % (20.0-40.0); MEAN CELL VOLUME 85.9 fl (81.0-99.0); MEAN CORPUSCULAR HGB CONC 32.6 g/dL (33.0-37.0); MEAN PLATELET VOLUME 8.5 fl (7.2-11.7); MONO # 0.6 K/uL (0.0-0.8); MONO % 6.1 % (0.0-10.0); NEUT % 56.5 % (50.0-75.0); NRBC % 0.2 % (0.0-0.0); RED CELL DISTRIBUTION WIDTH 13.7 % (11.5-14.5); WHITE BLOOD COUNT 10.6 K/uL (4.8-10.8)
[2016-10-18] MEDS ORDERED: Pneumococcal 23-Valent Vaccine IM ONE (09:00)
[2016-10-18] MEDS: Sodium Chloride 0.9% 1,000 ML IV SCH ×2 (20:19→21:18)
[2016-10-19] MEDS: Ampicillin/Sulbactam 1.5 GM in Sodium Chloride 0.9% 100 ML IVPB SCH ×3 (04:16→21:52)
[2016-10-19] MEDS: Sodium Chloride 0.9% 1,000 ML IV SCH ×2 (05:54→20:15)
[2016-10-19 06:45] LABS: BASO % 0.6 % (0.0-2.0); EOS # 0.1 K/uL (0.0-0.7); EOS % 1.3 % (0.0-4.0); HEMATOCRIT 34.9 % (34.0-47.0); LYMPH # 2.9 K/uL (1.0-4.3); LYMPH % 34.5 % (20.0-40.0); MEAN CELL VOLUME 86.4 fl (81.0-99.0); MEAN CORPUSCULAR HEMOGLOBIN 27.3 pg (27.0-31.0); MEAN CORPUSCULAR HGB CONC 31.6 g/dL (33.0-37.0); MEAN PLATELET VOLUME 8.6 fl (7.2-11.7); MONO # 0.6 K/uL (0.0-0.8); MONO % 6.7 % (0.0-10.0); NEUT # 4.8 K/uL (1.8-7.0); NEUT % 56.9 % (50.0-75.0); NRBC % 0.1 % (0.0-0.0); RED CELL DISTRIBUTION WIDTH 13.9 % (11.5-14.5); WHITE BLOOD COUNT 8.4 K/uL (4.8-10.8)
[2016-10-19 06:53] LABS: ALB/GLOB RATIO 1.2 (1.0-2.1); ALKALINE PHOSPHATASE 46 U/L (38-126); ALT/SGPT 35 U/L (9-52); AST/SGOT 18 U/L (14-36); BILIRUBIN,TOTAL 0.8 mg/dl (0.2-1.3); BLOOD UREA NITROGEN 9 mg/dl (7-17); CALCIUM 8.4 mg/dL (8.4-10.2); CARBON DIOXIDE 28 mmol/L (22-30); CHLORIDE 106 mmol/L (98-107); GFR AFRICAN-AMERICAN > 60; GLUCOSE,RANDOM 78 mg/dL (65-105); POTASSIUM 3.9 MMOL/L (3.6-5.0); SODIUM 140 mmol/l (132-148)
[2016-10-19] MEDS ORDERED: Bupivacaine 0.5% Inj(30mL) ONE (08:45)
[2016-10-19] MEDS ORDERED: Midazolam 2 MG/2 ML VIAL ONE (09:14)
[2016-10-19] MEDS ORDERED: Propofol 10 mg/ml Inj (20 ML) ONE (09:14)
[2016-10-19] MEDS ORDERED: Rocuronium 10 mg/ml (5 ml) ONE (09:14)
[2016-10-19] MEDS ORDERED: Neostigmine Methylsulfate 3mg/3ml Syringe IV ONE (09:14)
[2016-10-19] MEDS ORDERED: Succinylcholine 200 mg/10 ml Inj IV ONE (09:15)
[2016-10-19] MEDS ORDERED: Ampicillin/Sulbactam 1.5 gm Inj IVPB ONE (09:50)
[2016-10-19] MEDS ORDERED: ePHEDrine 50 mg/ml Inj ONE (10:00)
[2016-10-19] MEDS ORDERED: Bupivacaine 0.5% 50 ML IJ ONE ×2 (10:08→10:39)
[2016-10-19] MEDS ORDERED: Lactated Ringer's 1,000 ML IV ONE ×2 (10:08→10:38)
[2016-10-19] MEDS ORDERED: Sodium Chloride 0.9% 1,000 ML IV ONE (10:39)
[2016-10-19] MEDS ORDERED: HYDROmorphone 0.5 mg/0.5 ml ISec ONE ×2 (10:54→11:08)
[2016-10-19] MEDS ORDERED: HYDROmorphone 0.5 mg/0.5 ml ISec IVP ONE ×2 (10:59→11:11)
--- NOTE | 2016-10-19 11:00 | PCM.SURG1 ---
Surgeon's Initial Post Op Note - Surgeon's Notes Surgeon: Dr. Catalan Machine Cloth Examiner: Manasa Moser, PGY-1; Mary Archer DPM Pre-Operative Diagnosis: Cholecystitis, cholelithiasis Operative Findings: See full operative report Post-Operative Diagnosis: same Operation Performed: Laparoscopic cholecystectomy Specimen/Specimens Removed: gallbladder Estimated Blood Loss: EBL {In ML}: 10 Date of Surgery/Procedure: 10/19/16 Time of Surgery/Procedure: 09:30
[2016-10-19] MEDS ORDERED: Lactated Ringer's 1,000 ML IV SCH (11:16)
[2016-10-19] MEDS ORDERED: HYDROmorphone 0.5 mg/0.5 ml ISec IVP PRN (11:16)
[2016-10-19] MEDS: Oxycodone/Acetaminophen 5/325 mg Tab PO PRN ×3 (12:49→21:54)
[2016-10-19] MEDS ORDERED: Benzocaine/Menthol (Cepacol) Lozenge PO PRN (16:01)
--- NOTE | 2016-10-19 16:01 | CP.PCM.PN ---
Subjective - Date & Time of Evaluation Date of Evaluation: 10/19/16 Time of Evaluation: 15:00 - Subjective Subjective: Pt seen post op No fever abd pain controlled no N/N wants to eat tolerated Clear liquid diet complains of sorethroat no CP no SOB Objective - Vital Signs/Intake and Output Vital Signs (last 24 hours): Temp Pulse Resp BP Pulse Ox 98.5 F 99 H 18 104/65 98 10/19/16 14:40 10/19/16 14:40 10/19/16 14:40 10/19/16 14:40 10/19/16 14:40 Intake and Output: 10/19/16 10/19/16 06:59 18:59 Intake Total 1200 Balance 1200 - Medications Medications: Current Medications Acetaminophen (Tylenol 325mg Tab) 650 mg PO Q6 PRN PRN Reason: Headache Last Admin: 10/18/16 23:35 Dose: 650 mg Acetaminophen (Tylenol 325mg Tab) 650 mg PO Q6 PRN PRN Reason: Headache Hydromorphone HCl (Dilaudid) 0.5 mg IVP Q3H PRN PRN Reason: Pain, severe (8-10) Stop: 10/20/16 23:21 Ampicillin Sodium/Sulbactam (Sodium 1.5 gm/ Sodium Chloride) 100 mls @ 100 mls/ hr IVPB Q6 RAMANDEEP Last Admin: 10/19/16 04:16 Dose: 100 mls/hr Sodium Chloride (Sodium Chloride 0.9%) 1,000 mls @ 75 mls/hr IV .[id number] [facility] Stop: 10/20/16 13:43 Lactated Ringer's (Lactated Ringer's) 1,000 mls @ 100 mls/hr IV .Q10H [facility] Stop: 10/19/16 21:15 Morphine Sulfate (Morphine) 2 mg IVP Q4 PRN PRN Reason: Pain, severe (8-10) Nicotine (Nicoderm Cq) 1 patch TD DAILY [facility] Last Admin: 10/19/16 14:25 Dose: 1 patch Ondansetron HCl (Zofran Inj) 4 mg IVP Q4 PRN PRN Reason: Nausea/Vomiting Oxycodone/Acetaminophen (Percocet 5/325 Mg Tab) 1 tab PO Q4 PRN PRN Reason: Pain, moderate (4-7) Stop: 10/22/16 11:02 Last Admin: 10/19/16 12:49 Dose: 1 tab - Labs Labs: 10/19/16 06:00 10/19/16 06:00 PT 11.8 Seconds (9.8-13.1) 10/18/16 03:19 INR 1.0 (0.9-1.2) 10/18/16 03:19 APTT 27.7 Seconds (25.6-37.1) 10/18/16 03:19 - Constitutional Appears: No Acute Distress - Head Exam Head Exam: ATRAUMATIC, NORMAL INSPECTION, NORMOCEPHALIC - Eye Exam Eye Exam: EOMI, Normal appearance, PERRL Pupil Exam: NORMAL ACCOMODATION - ENT Exam ENT Exam: Mucous Membranes Moist, Normal External Ear Exam - Neck Exam Neck Exam: Full ROM. absent: Meningismus - Respiratory Exam Respiratory Exam: NORMAL BREATHING PATTERN. absent: Respiratory Distress - Cardiovascular Exam Cardiovascular Exam: REGULAR RHYTHM, +S1, +S2 - GI/Abdominal Exam GI & Abdominal Exam: Soft, Tenderness (mild diffuse tenderness), Hypoactive Bowel Sounds - Extremities Exam Extremities Exam: Full ROM, Normal Capillary Refill. absent: Calf Tenderness, Pedal Edema - Back Exam Back Exam: Full ROM. absent: CVA tenderness (L), CVA tenderness (R), paraspinal tenderness - Neurological Exam Neurological Exam: Alert, Awake, CN II-XII Intact, Oriented x3 Neuro motor strength exam: Left Upper Extremity: 5, Right Upper Extremity: 5, Left Lower Extremity: 5, Right Lower Extremity: 5 - Skin Skin Exam: Dry, Normal Color, Warm Assessment and Plan (1) Acute cholecystitis Status: Acute (2) Cholelithiasis Status: Acute (3) DVT prophylaxis Status: Acute - Assessment and Plan (Free Text) Assessment: 30 y/o lady came diagnosed 2 days prior to admission with Cholelithiasis , came back with more severe abd pain. (1) Acute cholecystitis s/p Lap Cholecystectomy Status: Acute Abd Sono; multiple gallstone presented with Biliary Colic Surgery consulted Pt had Lap Isabel this am IVF hydration Pain mgt cont IV Unasyn tolerating liquid diet upgrade to Regular in am poss d/c in am if tolerates Reg diet (2) Cholelithiasis Status: Acute as above (3) DVT prophylaxis Status: Acute Lovenox
[2016-10-19] MEDS: HYDROmorphone 0.5 mg/0.5 ml ISec IVP PRN (18:43)
[2016-10-20] MEDS: HYDROmorphone 0.5 mg/0.5 ml ISec IVP PRN (00:26)
[2016-10-20] MEDS: Ampicillin/Sulbactam 1.5 GM in Sodium Chloride 0.9% 100 ML IVPB SCH (03:39)
[2016-10-20] MEDS: Sodium Chloride 0.9% 1,000 ML IV SCH (03:41)
[2016-10-20] MEDS: Oxycodone/Acetaminophen 5/325 mg Tab PO PRN (05:42)
[2016-10-20] MEDS ORDERED: Simethicone 80 mg Chewtab PO STA (05:48)
[2016-10-20 06:19] VITALS: O2SAT 99
[2016-10-20] MEDS ORDERED: Oxycodone/Acetaminophen 5/325 mg Tab PO PRN (06:46)
[2016-10-20 07:21] VITALS: BP 108/68; PULSE 71; RESP 18; TEMP 98.3
[2016-10-20 07:33] LABS: BASO % 0.3 % (0.0-2.0); EOS # 0.1 K/uL (0.0-0.7); EOS % 0.6 % (0.0-4.0); HEMATOCRIT 34.6 % (34.0-47.0); LYMPH % 17.7 % (20.0-40.0); MEAN CELL VOLUME 85.9 fl (81.0-99.0); MEAN CORPUSCULAR HEMOGLOBIN 27.6 pg (27.0-31.0); MEAN CORPUSCULAR HGB CONC 32.1 g/dL (33.0-37.0); MEAN PLATELET VOLUME 8.2 fl (7.2-11.7); MONO # 0.7 K/uL (0.0-0.8); MONO % 6.6 % (0.0-10.0); NEUT # 8.4 K/uL (1.8-7.0); NEUT % 74.8 % (50.0-75.0); RED CELL DISTRIBUTION WIDTH 13.5 % (11.5-14.5); WHITE BLOOD COUNT 11.2 K/uL (4.8-10.8)
[2016-10-20 08:02] LABS: ALB/GLOB RATIO 1.2 (1.0-2.1); ALKALINE PHOSPHATASE 52 U/L (38-126); ALT/SGPT 36 U/L (9-52); AST/SGOT 31 U/L (14-36); BILIRUBIN,TOTAL 0.7 mg/dl (0.2-1.3); BLOOD UREA NITROGEN 6 mg/dl (7-17); CALCIUM 8.4 mg/dL (8.4-10.2); CARBON DIOXIDE 27 mmol/L (22-30); CHLORIDE 108 mmol/L (98-107); GFR AFRICAN-AMERICAN > 60; GLUCOSE,RANDOM 85 mg/dL (65-105); POTASSIUM 3.3 MMOL/L (3.6-5.0); SODIUM 140 mmol/l (132-148)
[2016-10-20] MEDS ORDERED: Enoxaparin 40 mg Syringe SC SCH (09:00)
[2016-10-20] MEDS ORDERED: Potassium Chloride 20 mEq ER Tab PO ONE (09:16)
--- NOTE | 2016-10-20 09:21 | CP.PCM.PN ---
<Patricia Sims - Last Filed: 10/20/16 09:18> Subjective - Date & Time of Evaluation Date of Evaluation: 10/20/16 Time of Evaluation: 09:18 - Subjective Subjective: General Surgery - Dr. Catalan Pt S&ELaurita LOPEZ. Pt complains of a headache and gas pains this morning. She states overall her abdominal pain is improved. She tolerated liquid diet last night and will have regular food this morning. No N/V, F/C, SOB/CP. Objective - Vital Signs/Intake and Output Vital Signs (last 24 hours): Temp Pulse Resp BP Pulse Ox 98.3 F 71 18 108/68 99 10/20/16 07:21 10/20/16 07:21 10/20/16 07:21 10/20/16 07:21 10/20/16 07:21 - Medications Medications: Current Medications Acetaminophen (Tylenol 325mg Tab) 650 mg PO Q6 PRN PRN Reason: Headache Last Admin: 10/20/16 07:55 Dose: 650 mg Acetaminophen (Tylenol 325mg Tab) 650 mg PO Q6 PRN PRN Reason: Headache Benzocaine/Menthol (Cepacol Sore Throat) 1 shannen PO Q2 PRN PRN Reason: Sore Throat Last Admin: 10/19/16 16:15 Dose: 1 shannen Enoxaparin Sodium (Lovenox) 40 mg SC DAILY RAMANDEEP PRN Reason: Protocol Last Admin: 10/20/16 08:00 Dose: 40 mg Hydromorphone HCl (Dilaudid) 0.5 mg IVP Q3H PRN PRN Reason: Pain, severe (8-10) Stop: 10/20/16 23:21 Last Admin: 10/20/16 00:26 Dose: 0.5 mg Ampicillin Sodium/Sulbactam (Sodium 1.5 gm/ Sodium Chloride) 100 mls @ 100 mls/ hr IVPB Q6 RAMANDEEP Last Admin: 10/20/16 03:39 Dose: 100 mls/hr Sodium Chloride (Sodium Chloride 0.9%) 1,000 mls @ 75 mls/hr IV .[id number] [facility] Stop: 10/20/16 13:43 Last Admin: 10/20/16 03:41 Dose: Not Given Nicotine (Nicoderm Cq) 1 patch TD DAILY [facility] Last Admin: 10/20/16 07:59 Dose: 1 patch Ondansetron HCl (Zofran Inj) 4 mg IVP Q4 PRN PRN Reason: Nausea/Vomiting Oxycodone/Acetaminophen (Percocet 5/325 Mg Tab) 2 tab PO Q4 PRN PRN Reason: Pain, moderate (4-7) Stop: 10/23/16 06:47 Potassium Chloride (K-Dur 20 Meq Er Tab) 40 meq PO ONCE ONE Stop: 10/20/16 09:17 - Labs Labs: 10/20/16 07:26 10/20/16 07:26 PT 11.8 Seconds (9.8-13.1) 10/18/16 03:19 INR 1.0 (0.9-1.2) 10/18/16 03:19 APTT 27.7 Seconds (25.6-37.1) 10/18/16 03:19 - Constitutional Appears: No Acute Distress - Head Exam Head Exam: ATRAUMATIC, NORMAL INSPECTION, NORMOCEPHALIC - Eye Exam Eye Exam: Normal appearance - Respiratory Exam Respiratory Exam: NORMAL BREATHING PATTERN. absent: Respiratory Distress - Cardiovascular Exam Cardiovascular Exam: REGULAR RHYTHM - GI/Abdominal Exam GI & Abdominal Exam: Soft, Tenderness (appropriately). absent: Distended, Guarding, Rigid, Rebound - Neurological Exam Neurological Exam: Alert, Oriented x3 - Psychiatric Exam Psychiatric exam: Normal Affect, Normal Mood - Skin Skin Exam: Dry, Intact Assessment and Plan - Assessment and Plan (Free Text) Assessment: 30yo F s/p lap cholecystectomy, POD #1 -Doing well post-op -Regular diet this AM -Encourage OOB/Ambulation -If tolerating regular diet pt is clear for D/C home from surgical standpoint -Pt is to F/U in office with Dr Catalan in [address] Hossein Sims PGY2 <Po Catalan - Last Filed: 10/20/16 09:40> Subjective - Subjective Subjective: Patient was seen and examined at the bedside. Agree with resident's note above. Objective - Vital Signs/Intake and Output Vital Signs (last 24 hours): Temp Pulse Resp BP Pulse Ox 98.3 F 71 18 108/68 99 10/20/16 07:21 10/20/16 07:21 10/20/16 07:21 10/20/16 07:21 10/20/16 07:21 - Medications Medications: Current Medications Acetaminophen (Tylenol 325mg Tab) 650 mg PO Q6 PRN PRN Reason: Headache Last Admin: 10/20/16 07:55 Dose: 650 mg Acetaminophen (Tylenol 325mg Tab) 650 mg PO Q6 PRN PRN Reason: Headache Benzocaine/Menthol (Cepacol Sore Throat) 1 shannen PO Q2 PRN PRN Reason: Sore Throat Last Admin: 10/19/16 16:15 Dose: 1 shannen Enoxaparin Sodium (Lovenox) 40 mg SC DAILY RAMANDEEP PRN Reason: Protocol Last Admin: 10/20/16 08:00 Dose: 40 mg Hydromorphone HCl (Dilaudid) 0.5 mg IVP Q3H PRN PRN Reason: Pain, severe (8-10) Stop: 10/20/16 23:21 Last Admin: 10/20/16 00:26 Dose: 0.5 mg Ampicillin Sodium/Sulbactam (Sodium 1.5 gm/ Sodium Chloride) 100 mls @ 100 mls/ hr IVPB Q6 RAMANDEEP Last Admin: 10/20/16 03:39 Dose: 100 mls/hr Sodium Chloride (Sodium Chloride 0.9%) 1,000 mls @ 75 mls/hr IV .[id number] [facility] Stop: 10/20/16 13:43 Last Admin: 10/20/16 03:41 Dose: Not Given Nicotine (Nicoderm Cq) 1 patch TD DAILY [facility] Last Admin: 10/20/16 07:59 Dose: 1 patch Ondansetron HCl (Zofran Inj) 4 mg IVP Q4 PRN PRN Reason: Nausea/Vomiting Oxycodone/Acetaminophen (Percocet 5/325 Mg Tab) 2 tab PO Q4 PRN PRN Reason: Pain, moderate (4-7) Stop: 10/23/16 06:47 Potassium Chloride (K-Dur 20 Meq Er Tab) 40 meq PO ONCE ONE Stop: 10/20/16 09:17 Potassium Chloride (Potassium Chloride Oral Soln) 20 meq PO ONCE ONE Stop: 10/20/16 09:32 - Labs Labs: 10/20/16 07:26 10/20/16 07:26 PT 11.8 Seconds (9.8-13.1) 10/18/16 03:19 INR 1.0 (0.9-1.2) 10/18/16 03:19 APTT 27.7 Seconds (25.6-37.1) 10/18/16 03:19 Assessment and Plan - Assessment and Plan (Free Text) Plan: - Clear for discharge home from the surgical stand point
[2016-10-20] MEDS ORDERED: Potassium Chloride 20 mEq/15 ml LIQ UD PO ONE (09:31)
--- NOTE | 2016-10-20 09:39 | CP.PCM.DIS ---
Provider - Provider Date of Admission: 10/18/16 01:56 Attending physician: Yoni Licea Primary care physician: Alisha Lin MD Consults: Surgery consult Time Spent in preparation of Discharge (in minutes): 15 Hospital Course - Lab Results Lab Results: Most Recent Lab Values WBC 11.2 K/uL (4.8-10.8) H 10/20/16 07:26 RBC 4.03 Mil/uL (3.80-5.20) 10/20/16 07:26 Hgb 11.1 g/dL (12.0-16.0) L 10/20/16 07:26 Hct 34.6 % (34.0-47.0) 10/20/16 07:26 MCV 85.9 fl (81.0-99.0) 10/20/16 07:26 MCH 27.6 pg (27.0-31.0) 10/20/16 07:26 MCHC 32.1 g/dL (33.0-37.0) L 10/20/16 07:26 RDW 13.5 % (11.5-14.5) 10/20/16 07:26 Plt Count 230 K/uL (130-400) 10/20/16 07:26 MPV 8.2 fl (7.2-11.7) 10/20/16 07:26 Neut % (Auto) 74.8 % (50.0-75.0) 10/20/16 07:26 Lymph % (Auto) 17.7 % (20.0-40.0) L 10/20/16 07:26 [place] % (Auto) 6.6 % (0.0-10.0) 10/20/16 07:26 Eos % (Auto) 0.6 % (0.0-4.0) 10/20/16 07:26 Baso % (Auto) 0.3 % (0.0-2.0) 10/20/16 07:26 Neut # 8.4 K/uL (1.8-7.0) H 10/20/16 07:26 Lymph # 2.0 K/uL (1.0-4.3) 10/20/16 07:26 [place] # 0.7 K/uL (0.0-0.8) 10/20/16 07:26 Eos # 0.1 K/uL (0.0-0.7) 10/20/16 07:26 Baso # 0.0 K/uL (0.0-0.2) 10/20/16 07:26 PT 11.8 Seconds (9.8-13.1) 10/18/16 03:19 INR 1.0 (0.9-1.2) 10/18/16 03:19 APTT 27.7 Seconds (25.6-37.1) 10/18/16 03:19 Sodium 140 mmol/l (132-148) 10/20/16 07:26 Potassium 3.3 MMOL/L (3.6-5.0) L 10/20/16 07:26 Chloride 108 mmol/L (98-107) H 10/20/16 07:26 Carbon Dioxide 27 mmol/L (22-30) 10/20/16 07:26 Anion Gap 8 (10-20) L 10/20/16 07:26 BUN 6 mg/dl (7-17) L 10/20/16 07:26 Creatinine 0.7 mg/dL (0.7-1.2) 10/20/16 07:26 Est GFR ( Amer) > 60 10/20/16 07:26 Est GFR (Non-Af Amer) > 60 10/20/16 07:26 Random Glucose 85 mg/dL (65-105) 10/20/16 07:26 Calcium 8.4 mg/dL (8.4-10.2) 10/20/16 07:26 Total Bilirubin 0.7 mg/dl (0.2-1.3) 10/20/16 07:26 AST 31 U/L (14-36) 10/20/16 07:26 ALT 36 U/L (9-52) 10/20/16 07:26 Alkaline Phosphatase 52 U/L (38-126) 10/20/16 07:26 Total Protein 6.0 G/DL (6.3-8.2) L 10/20/16 07:26 Albumin 3.3 g/dL (3.5-5.0) L 10/20/16 07:26 Globulin 2.7 gm/dL (2.2-3.9) 10/20/16 07:26 Albumin/Globulin Ratio 1.2 (1.0-2.1) 10/20/16 07:26 Amylase 97 U/L (30-110) 10/17/16 21:36 Lipase 67 U/L (23-300) 10/17/16 21:36 Beta HCG, Quant < 2.39 mIU/mL 10/18/16 05:55 Urine Color Yellow (YELLOW) 10/17/16 21:36 Urine Clarity Cloudy (Clear) 10/17/16 21:36 Urine pH 6.0 (5.0-8.0) 10/17/16 21:36 Ur Specific [place] 1.030 (1.003-1.030) 10/17/16 21:36 Urine Protein 30 mg/dL (NEGATIVE) 10/17/16 21:36 Urine Glucose (UA) Neg mg/dL (Normal) 10/17/16 21:36 Urine Ketones Negative mg/dL (NEGATIVE) 10/17/16 21:36 Urine Blood Negative (NEGATIVE) 10/17/16 21:36 Urine Nitrate Negative (NEGATIVE) 10/17/16 21:36 Urine Bilirubin Negative (NEGATIVE) 10/17/16 21:36 Urine Urobilinogen 2.0 mg/dL (0.2-1.0) H 10/17/16 21:36 Ur Leukocyte Esterase Neg [place]/uL (Negative) 10/17/16 21:36 Urine RBC (Auto) 3 /hpf (0-3) 10/17/16 21:36 Urine Microscopic WBC 3 /hpf (0-5) 10/17/16 21:36 Ur Squamous Epith Cells 17 /hpf (0-5) H 10/17/16 21:36 Urine Bacteria Rare (<OCC) 10/17/16 21:36 - Hospital Course Hospital Course: 30 y/o lady came diagnosed 2 days prior to admission with Cholelithiasis , came back with more severe abd pain. Surgery was consulted . She was taken to OR and underwent laparascopic cholecystectomy. Post op doing well, Cleared by surgery for discharge today. Hemodynamically stable, afebrile, tolerating PO intake. Received Unasyn IV while in hospital. No need for further antibiotics as outpatient. Percoset prescription given by Dr. Catalan 1.Symptomatic cholelithiasis without cholecystitis s/p laparascopic cholecystectomty Abd Sono; multiple gallstone presented with Biliary Colic Surgery consulted Received IVF, pain management and Unasyn IV Tolerating regular diet post op 2. Cholelithiasis s/p cholecystectomy Discharge Exam - Head Exam Head Exam: ATRAUMATIC, NORMAL INSPECTION, NORMOCEPHALIC - Eye Exam Eye Exam: EOMI, Normal appearance, PERRL Pupil Exam: NORMAL ACCOMODATION - ENT Exam ENT Exam: Mucous Membranes Moist, Normal Exam - Neck Exam Neck exam: Full Rom, Normal Inspection - Respiratory Exam Respiratory Exam: Clear to PA & Lateral, NORMAL BREATHING PATTERN. absent: Rales, Rhonchi, Wheezes - Cardiovascular Exam Cardiovascular Exam: REGULAR RHYTHM, RRR, +S1, +S2. absent: JVD - GI/Abdominal Exam GI & Abdominal Exam: Normal Bowel Sounds, Soft. absent: Distended, Guarding, Rebound, Tenderness - Rectal Exam Rectal Exam: Deferred - Extremities Exam Extremities exam: normal capillary refill, normal inspection, pedal pulses present - Back Exam Back exam: NORMAL INSPECTION - Neurological Exam Neurological exam: Alert, CN II-XII Intact, Oriented x3, Reflexes Normal - Psychiatric Exam Psychiatric exam: Normal Affect, Normal Mood Additional comments: tearful - Skin Skin Exam: Dry, Intact, Normal Color, Warm Discharge Plan - Follow Up Plan Condition: STABLE Disposition: HOME/ ROUTINE Patient education suggested?: Yes Instructions: Gallstones (GEN), Laparoscopic Cholecystectomy (DC) Additional Instructions: follow up appointment with dr jesus on 10/28/18 at 3:30pm Referrals: Po Catalan MD [Staff Provider] - Shaik Brito MD [Family Provider] -
--- NOTE | 2016-10-20 11:27 | CARD ---
APPROVED REPORT EKG Measurement Heart [id number] <Conclusion> Normal sinus rhythm Normal ECG
--- NOTE | 2016-10-20 11:43 | CARD ---
APPROVED REPORT EKG Measurement Heart [id number] <Conclusion> Sinus bradycardia Otherwise normal ECG
--- NOTE | 2016-11-25 08:26 | OP ---
PROCEDURE DATE: 10/19/2016 PREOPERATIVE DIAGNOSIS: Acute cholecystitis. POSTOPERATIVE DIAGNOSIS: Acute cholecystitis. PROCEDURE: Laparoscopic cholecystectomy. SURGEON: Po Catalan MD PIPING DESIGNER: Ehsan. SECOND PIPING DESIGNER: Gianni. ANESTHESIA: General, endotracheal intubation. IV FLUID INTAKE: Crystalloids. ESTIMATED BLOOD LOSS: 10 mL INTRAOPERATIVE FINDINGS: Cholecystitis and cholelithiasis. SPECIMEN: Gallbladder with stones. BRIEF HISTORY: The patient is a very pleasant 30-year-old female who came to the hospital complaining of upper abdominal pain and upon further investigation on ultrasound was found to have acute cholecystitis. All the risks and benefits of the procedure were explained to the patient and with the patient having a full understanding of all the risks and benefits involved; informed consent was obtained and the patient was taken to the operating room for above stated procedure. PROCEDURE: The patient was brought into the operating room and placed supine on operating table. Bilateral Flowtron boots were applied to the patient's lower extremities. After successful induction of anesthesia and successful endotracheal intubation by the anesthesia team, the patient's abdomen was prepped with ChloraPrep sticks and draped in a standard surgical fashion. Prior to the beginning of the procedure, a timeout was called in the room and everyone in the room were in agreement. Once this was accomplished, using Veress needle, the patient's abdomen was entered at the umbilicus and pneumoperitoneum was achieved with good opening pressures. Once this was accomplished, using an 11 blade scalpel knife, approximately 1 cm incision was made in the umbilicus in a longitudinal fashion and subsequent to that 11 mm trochar was introduced into the patient's abdomen. At that point in time, a 5 mm 0-degree scope was introduced into the patient's abdomen and abdomen was inspected. Then, attention was turned to the subxiphoid area. Using 11 blade scalpel knife, a 5 mm incision made in transverse fashion and subsequent to that another 5 mm trochar was introduced into the patient's abdomen. At that point in time, attention was turned to the right side of the patient's abdomen. Using 11 blade scalpel knife, two 5 mm incisions were made in a transverse fashion and subsequent to that another two 5 mm trochars were introduced into the patient's abdomen. At that point in time, gallbladder was grasped by the fundus and infundibulum and using [place] dissector, cystic duct and cystic artery were dissected out and a critical view of safety was achieved. Once this was accomplished, the cystic duct was clipped with 2 clips proximal one distal and transected with laparoscopic scissors. Same thing was done to a cystic artery. It was clipped with 2 clips, proximal one distal and transected with laparoscopic scissors. Subsequent to that gallbladder was dissected off the gallbladder fossa using hook electrical cautery and once the gallbladder was completely freed up from the gallbladder fossa, Endo Catch bag was introduced into the patient's abdomen; gallbladder was placed inside of the bag and the bag was closed. At that point in time, gallbladder fossa was inspected for hemostasis. Hemostasis was confirmed. Gallbladder fossa was irrigated with sterile saline and a fluid was suctioned out. At that point in time, 11 mm trochar together with the Endo Catch bag and the gallbladder were removed from the patient's abdomen and passed off to the [facility] as a specimen. Fascial layer at the umbilical port site was closed with one interrupted 0-Vicryl suture on UR-5 needle and subsequent to that the patient's abdomen was fully desufflated; the rest of the trochars were removed from the patient's abdomen and the skin was closed with 4-0 Monocryl suture in a running subcuticular fashion. At the end of the procedure, incision sites were infiltrated with Marcaine anesthetic. The patient's abdomen was washed and dried and a Dermabond was applied to the incision sites. The patient was successfully extubated by the anesthesia team, transferred to the stretcher and taken to the recovery room under stable condition. At the end of the procedure, all instrument counts, needles, and sponges were correct. Po Catalan MD HERNANDEZ
== END 2016-10-20 12:18 | disposition home or self-care (01) | DRG 494 ==
LOC: H.ER 19:50 → H.ERHOLD 10-18 01:56 → H.MEDSURG1 10-18 03:18
PROVIDERS: ADMIT Internal Medicine; ATTEND Internal Medicine
PROC: 0FT44ZZ Resection of Gallbladder, Percutaneous Endoscopic Approach (ICD-10-PCS; principal; 2016-10-19 09:15)
DX: K80.00 Calculus of gallbladder with acute cholecystitis without obstruction (principal); G89.29 Other chronic pain; G43.909 Migraine, unspecified, not intractable, without status migrainosus

== ENCOUNTER 2016-10-24 16:43 | Emergency (ER) | payer MEDICAID ==
[2016-10-24 16:44] VITALS: BMI 25.1
[2016-10-24] MEDS ORDERED: Sodium Chloride 0.9% 1,000 ML IV STA (17:21)
[2016-10-24 17:43] LABS: BASO # 0.1 K/uL (0.0-0.2); BASO % 0.9 % (0.0-2.0); EOS # 0.1 K/uL (0.0-0.7); EOS % 1.4 % (0.0-4.0); HEMOGLOBIN 12.3 g/dL (12.0-16.0); LYMPH # 2.6 K/uL (1.0-4.3); LYMPH % 29.2 % (20.0-40.0); MEAN CELL VOLUME 86.4 fl (81.0-99.0); MEAN CORPUSCULAR HEMOGLOBIN 27.5 pg (27.0-31.0); MEAN CORPUSCULAR HGB CONC 31.9 g/dL (33.0-37.0); MONO # 0.7 K/uL (0.0-0.8); MONO % 7.3 % (0.0-10.0); NEUT # 5.5 K/uL (1.8-7.0); NEUT % 61.2 % (50.0-75.0); RBC 4.46 Mil/uL (3.80-5.20); WHITE BLOOD COUNT 9.1 K/uL (4.8-10.8)
--- NOTE | 2016-10-24 17:54 | ED PDOC ---
HPI: General Adult Time Seen by Provider: 10/24/16 17:10 Chief Complaint (Nursing): Chest Pain Chief Complaint (Provider): EPigastric pain with associated chest pain and sob History Per: Patient History/Exam Limitations: no limitations Onset/Duration Of Symptoms: Days (3) Have you had recent travel within the past 21 days to any of the following countries: [place], [place], [place] or [place]?: No Current Symptoms Are (Timing): Still Present Severity: Moderate Additional History Per: Patient Additional Complaint(s): The pt is a 30yo female, presents to ED for evaluation of epigastric pain that started 3 days ago and has been worse since onset and is radiating to right upper quadrant, associated with some chest pain and shortness of breath. States her epigastric pain is severe and attributes it to a recent cholecystectomy procedure; reports the pain right after surgery was controlled by percocets. States her chest pain and shortness of breath are new. Denies any fever, does report constipation which is chronic. Denies any black or bloody stools, vomiting. Reports nausea and decreased appetite. Offers no additional medical complaints. PCP: Dr. Brito Past Medical History Reviewed: Historical Data, Nursing Documentation, Vital Signs Vital Signs: Last Vital Signs Temp 99 F 10/24/16 16:46 Pulse 71 10/24/16 20:52 Resp 20 10/24/16 16:46 BP 107/50 L 10/24/16 16:46 Pulse Ox 100 10/24/16 20:52 - Medical History PMH: Back Problems (chronic lower back pain, see HPI ), Migraine Denies: Chronic Kidney Disease - Surgical History Surgical History: Cholecystectomy - Family History Family History: States: Unknown Family Hx - Immunization History Hx Tetanus Toxoid Vaccination: No Hx Influenza Vaccination: No Hx Pneumococcal Vaccination: No - Home Medications Home Medications: Ambulatory Orders Medication Instructions Recorded Docusate Sodium [Colace] 100 mg PO BID #30 capsule 10/20/16 oxyCODONE/Acetaminophen [Percocet 2 tab PO Q4 PRN tab 10/20/16 5/325 mg Tab] Polyethylene Glycol 3350 [Miralax] 17 gm PO DAILY PRN #1 bottle 10/24/16 oxyCODONE/Acetaminophen [Percocet 1 tab PO QID PRN #20 tab 10/24/16 5/325 mg Tab] - Allergies Allergies/Adverse Reactions: Allergies Allergy/AdvReac Type Severity Reaction Status Date / Time No Known Allergies Allergy Verified 10/17/16 20:26 Review of Systems ROS Statement: Except As Marked, All Systems Reviewed And Found Negative Constitutional: Negative for: Fever Cardiovascular: Positive for: Chest Pain Respiratory: Positive for: Shortness of Breath Gastrointestinal: Positive for: Nausea, Abdominal Pain, Constipation (chronic). Negative for: Vomiting, Melena, Hematochezia Physical Exam - Reviewed Nursing Documentation Reviewed: Yes Vital Signs Reviewed: Yes - Physical Exam Appears: Positive for: Uncomfortable (moderate painful distress) Head Exam: Positive for: ATRAUMATIC, NORMAL INSPECTION, NORMOCEPHALIC Skin: Positive for: Normal Color, Warm, Dry (tacky mucus membranes) Eye Exam: Positive for: Normal appearance ENT: Positive for: Pharynx Is (normal). Negative for: Pharyngeal Erythema Neck: Positive for: Normal, Supple Cardiovascular/Chest: Positive for: Regular Rate, Rhythm, Chest Non Tender Respiratory: Positive for: Normal Breath Sounds, Other (poor inspiratory effor) . Negative for: Respiratory Distress Gastrointestinal/Abdominal: Positive for: Soft, Tenderness (right upper quadrant and epigastric tenderness to palpation), Other (well healing surgical wound, clean and intact). Negative for: Mass, Distended, Guarding, Rebound Back: Positive for: Normal Inspection Extremity: Positive for: Normal ROM Neurologic/Psych: Positive for: Alert, Oriented - Laboratory Results Result Diagrams: 10/24/16 17:30 10/24/16 17:30 - ECG ECG Rhythm: Positive for: Normal QRS, Normal ST Segment, Sinus Rhythm Rate: 71 O2 Sat by Pulse Oximetry: 100 (RA) Pulse Ox Interpretation: Normal Medical Decision Making Medical Decision Making: Time: 1730 Impression: Abdominal pain and chest pain Differential: Post surgical pain, abdominal abscess, pancreatitis, PNA, gastritis, PE Plan: -- Morphine 4 mg IV -- IV Fluids -- CXR Reassess JUAN Catalan Surgery who advised RUQ US and will come see patient. JUAN Moser who will come to see patient No clinically significant lab abnormalities. EXAM: US Abdomen Limited, Right Upper Quadrant CLINICAL HISTORY: 30 years old, female; Pain; Abdominal pain; Epigastric; Prior surgery; Surgery date: 3-7 days postoperative; Surgery type: Cholecystectomy 10/19/2016; Additional info: Ruq pain TECHNIQUE: Real-time ultrasound of the right upper quadrant with image documentation. EXAM DATE/TIME: Exam ordered 10/24/2016 6:12 PM COMPARISON: US - RIGHT UPPER QUADRANT 10/17/2016 10:20:06 PM FINDINGS: Liver: Unremarkable. No mass. No intrahepatic bile duct dilation. Gallbladder: Cholecystectomy. Common bile duct: Unremarkable as visualized. No stones. No dilation. Pancreas: Unremarkable as visualized. Right kidney: Unremarkable. No stones. No solid mass. No hydronephrosis. IMPRESSION: Cholecystectomy. Thank you for allowing us to participate in the care of your patient. Dictated and Authenticated by: Andrew Snyder MD 10/24/2016 8:34 PM Eastern Time ([place] & [place]) Evaluated by Surgery in ED, who advised Percocet prescriptions and f/u in office. Scribe Attestation: Documented by Penelope Cooney acting as a scribe for Lena Berry MD. Provider Attestation: All medical record entries made by the Scribe were at my direction and personally dictated by me. I have reviewed the chart and agree that the record accurately reflects my personal performance of the history, physical exam, medical decision making, and the department course for this patient. I have also personally directed, reviewed, and agree with the discharge instructions and disposition. Disposition - Clinical Impression Clinical Impression: Post-op pain Counseled Patient/Family Regarding: Studies Performed, Diagnosis, Need For Followup, Rx Given (risks of dependence, addiction, overdose and from narcotic pain medications) - Disposition Referrals: Po Catalan MD [Staff Provider] - Disposition: Routine/Home Disposition Time: 21:00 Condition: IMPROVED Additional Instructions: RETURN TO ER FOR SHORTNESS OF BREATH, CHEST PAIN, FAINTING OR NEAR FAINTING, SEVERE INTRACTABLE ABDOMINAL PAIN OR ANY OTHER WORRISOME SYMPTOMS Prescriptions: oxyCODONE/Acetaminophen [Percocet 5/325 mg Tab] 1 tab PO QID PRN #20 tab PRN Reason: Pain Polyethylene Glycol 3350 [Miralax] 17 gm PO DAILY PRN #1 bottle PRN Reason: Constipation Instructions: Pain Management After Surgery (GEN), Narcotic Pain Management (ED )
[2016-10-24 17:56] LABS: ALB/GLOB RATIO 1.3 (1.0-2.1); ALBUMIN 4.1 g/dL (3.5-5.0); ALT/SGPT 47 U/L (9-52); AST/SGOT 29 U/L (14-36); BLOOD UREA NITROGEN 15 mg/dl (7-17); CALCIUM 9.1 mg/dL (8.4-10.2); GFR AFRICAN-AMERICAN > 60; GFR NON-AFRICAN AMERICAN > 60; LIPASE 33 U/L (23-300); PARTIAL THROMBOPLASTIN TIME 30.8 Seconds (25.6-37.1); PROTHROMBIN TIME 11.3 Seconds (9.8-13.1)
--- NOTE | 2016-10-24 20:35 | CP.PCM.CON ---
<Manasa Moser - Last Filed: 10/24/16 21:02> History of Present Illness - History of Present Illness History of Present Illness: General Surgery Consult note for Dr. Catalan Consulted for: Abdominal pain, s/p laparoscopic cholecystectomy Patient is a 30 y/o female POD#5 s/p laparoscopic cholecystectomy for cholelithiasis and chronic biliary colic who presents to the ER today for worsening epigastric abdominal pain since monday. Patient states that she was doing well post-operatively with per PO percocet covering her pain until Monday, when her percocet ran out. Patient states that she has had a feeling of aching "tightness" in her epigastrium associated with intermittent nausea that has been getting worse since Monday. Patient states that the pain also radiates up her central chest and is similar to the feeling she gets when eating spicy food. She states it feels difficult to take deep breaths but denies any respiratory distress or palpitations. Patient also reports subjective fevers and chills. Denies any vomiting, food intolerance, diarrhea, constipation, dysuria, hematuria, hematochezia, melena, or bleeding or discharge from the surgical sites. Patient is afebrile, vital signs are stable. WBC is wnl, as are LFT's. Abdominal US: unremarkable, CBD normal size without stone PMH: none PSH: laparoscopic cholecystectomy 10/19/16 ALL: NKDA Review of Systems - Review of Systems All systems: reviewed and no additional remarkable complaints except (as per HPI ) - Constitutional Constitutional: Chills, Fever - Cardiovascular Cardiovascular: Chest Pain, Chest Pain at Rest. absent: Chest Pain with Activity, Dyspnea, Edema, Irregular Heart Rhythm - Respiratory Respiratory: absent: Cough, Dyspnea, Wheezing - Gastrointestinal Gastrointestinal: Abdominal Pain (epigastric), Heartburn, Nausea. absent: Constipation, Diarrhea, Hematemesis, Hematochezia, Vomiting - Genitourinary Genitourinary: Urinary Urgency. absent: Change in Urinary Stream, Dysuria, Hematuria - Musculoskeletal Musculoskeletal: Back Pain, Neck Pain. absent: Muscle Weakness - Neurological Neurological: absent: Numbness, Frequent Falls, Lack of Coordination, Tingling, Weakness - Endocrine Endocrine: absent: Palpitations, Polydipsia, Polyuria Past Patient History - Past Medical History & Family History Past Medical History?: Yes - Past Social History Smoking Status: Never Smoked - CARDIAC Hx Cardiac Disorders: No - PULMONARY Hx Respiratory Disorders: No - NEUROLOGICAL Hx Migraine: Yes - HEENT Hx HEENT Problems: No - RENAL Hx Chronic Kidney Disease: No - ENDOCRINE/METABOLIC Hx Endocrine Disorders: No - HEMATOLOGICAL/ONCOLOGICAL Hx Blood Disorders: No - INTEGUMENTARY Hx Dermatological Problems: No - MUSCULOSKELETAL/RHEUMATOLOGICAL Hx Musculoskeletal Disorders: No - GENITOURINARY/GYNECOLOGICAL Hx Genitourinary Disorders: No - PSYCHIATRIC Hx Psychophysiologic Disorder: No Hx Substance Use: No - SURGICAL HISTORY Hx Surgeries: Yes Hx Cholecystectomy: Yes - ANESTHESIA Hx Anesthesia: No Hx Anesthesia Reactions: No Meds Allergies/Adverse Reactions: Allergies Allergy/AdvReac Type Severity Reaction Status Date / Time No Known Allergies Allergy Verified 10/17/16 20:26 Physical Exam - Constitutional Appears: Well, Non-toxic, No Acute Distress - Head Exam Head Exam: ATRAUMATIC, NORMOCEPHALIC - Eye Exam Eye Exam: Normal appearance. absent: Conjunctival injection, Scleral icterus - ENT Exam ENT Exam: Mucous Membranes Moist, Normal Oropharynx - Respiratory Exam Respiratory Exam: NORMAL BREATHING PATTERN. absent: Accessory Muscle Use, Respiratory Distress - Cardiovascular Exam Cardiovascular Exam: RRR - GI/Abdominal Exam GI & Abdominal Exam: Soft, Tenderness (epigastric>RUQ). absent: Distended Additional comments: Surgical incision with skin edges well approximated with dermabond, no surrounding erythema, drainage, or active bleeding. - Extremities Exam Extremities exam: Positive for: pedal pulses present. Negative for: calf tenderness, pedal edema - Back Exam Back exam: CVA tenderness (R). absent: CVA tenderness (L), rash noted - Neurological Exam Neurological exam: Alert, Oriented x3 - Psychiatric Exam Psychiatric exam: Normal Affect, Normal Mood - Skin Skin Exam: Dry, Normal Color, Warm Results - Vital Signs Recent Vital Signs: Last Vital Signs Temp 99 F 10/24/16 16:46 Pulse 71 10/24/16 18:14 Resp 20 10/24/16 16:46 BP 107/50 L 10/24/16 16:46 Pulse Ox 100 10/24/16 18:14 - Labs Result Diagrams: 10/24/16 17:30 10/24/16 17:30 Labs: Laboratory Results - last 24 hr 10/24/16 10/24/16 10/24/16 17:30 17:30 17:30 WBC 9.1 RBC 4.46 Hgb 12.3 Hct 38.5 MCV 86.4 MCH 27.5 MCHC 31.9 L RDW 14.0 Plt Count 273 MPV 8.0 Neut % (Auto) 61.2 Lymph % (Auto) 29.2 Kane % (Auto) 7.3 Eos % (Auto) 1.4 Baso % (Auto) 0.9 Neut # 5.5 Lymph # 2.6 Kane # 0.7 Eos # 0.1 Baso # 0.1 PT 11.3 INR 1.0 APTT 30.8 Sodium 139 Potassium 4.7 Chloride 106 Carbon Dioxide 27 Anion Gap 11 BUN 15 Creatinine 0.7 Est GFR ( Amer) > 60 Est GFR (Non-Af Amer) > 60 Random Glucose 84 Calcium 9.1 Total Bilirubin 0.3 AST 29 ALT 47 Alkaline Phosphatase 51 Total Protein 7.3 Albumin 4.1 Globulin 3.3 Albumin/Globulin Ratio 1.3 Lipase 33 Assessment & Plan - Assessment and Plan (Free Text) Assessment: 30F POD #5 s/p laparoscopic cholecystectomy with epigastric abdominal pain Likely post surgical pain, possible GERD component US: Unremarkable LFT's wnl WBC: wnl Abdominal exam benign besides epigastric pain Plan: - Control patient pain - Anti-emetics - Protonix - Follow up with Dr. Catalan in his office later this week Patient seen by/discussed with Dr. Hossein Moser, PGY2 <Po Catalan - Last Filed: 10/25/16 08:51> History of Present Illness - History of Present Illness History of Present Illness: Patient was seen and examined in the Emergency Room. Agree with resident's note above. Results - Vital Signs Recent Vital Signs: Last Vital Signs Temp 98.1 F 10/24/16 22:10 Pulse 82 10/24/16 22:10 Resp 16 10/24/16 22:10 BP 118/70 10/24/16 22:10 Pulse Ox 98 10/24/16 22:10 - Labs Result Diagrams: 10/24/16 17:30 10/24/16 17:30 Labs: Laboratory Results - last 24 hr 10/24/16 10/24/16 10/24/16 17:30 17:30 17:30 WBC 9.1 RBC 4.46 Hgb 12.3 Hct 38.5 MCV 86.4 MCH 27.5 MCHC 31.9 L RDW 14.0 Plt Count 273 MPV 8.0 Neut % (Auto) 61.2 Lymph % (Auto) 29.2 Kane % (Auto) 7.3 Eos % (Auto) 1.4 Baso % (Auto) 0.9 Neut # 5.5 Lymph # 2.6 Kane # 0.7 Eos # 0.1 Baso # 0.1 PT 11.3 INR 1.0 APTT 30.8 Sodium 139 Potassium 4.7 Chloride 106 Carbon Dioxide 27 Anion Gap 11 BUN 15 Creatinine 0.7 Est GFR ( Amer) > 60 Est GFR (Non-Af Amer) > 60 Random Glucose 84 Calcium 9.1 Total Bilirubin 0.3 AST 29 ALT 47 Alkaline Phosphatase 51 Total Protein 7.3 Albumin 4.1 Globulin 3.3 Albumin/Globulin Ratio 1.3 Lipase 33 - Imaging and Cardiology US - abdomen Status: Image reviewed by me, Report reviewed by me Assessment & Plan - Assessment and Plan (Free Text) Plan: - Clear for discharge home from the surgical stand point - Percocet 5/325 mg po Q4h prn pain for home - Patient will follow up with me in the office for post-op visit
[2016-10-24] MEDS ORDERED: Oxycodone/Acetaminophen 5/325 mg Tab PO STA (20:52)
[2016-10-24 22:56] VITALS: BP 118/70; PULSE 82; RESP 16; TEMP 98.1; O2SAT 98
--- NOTE | 2016-10-25 08:57 | RAD ---
HISTORY: chest pain COMPARISON: No prior. TECHNIQUE: Chest PA and lateral FINDINGS: LUNGS: No focal airspace opacity. PLEURA: No significant pleural effusion identified. No pneumothorax apparent. CARDIOVASCULAR: Normal. OSSEOUS STRUCTURES: No significant abnormalities. VISUALIZED UPPER ABDOMEN: Normal. OTHER FINDINGS: Surgical clips in the right upper quadrant. IMPRESSION: No focal airspace opacity.
--- NOTE | 2016-10-25 09:50 | CARD ---
APPROVED REPORT EKG Measurement Heart [id number] <Conclusion> Normal sinus rhythm Possible Left atrial enlargement Borderline ECG
--- NOTE | 2016-10-25 10:23 | US ---
HISTORY: RUQ pain COMPARISON: 10/17/2016 TECHNIQUE: Sonographic evaluation of the abdomen. FINDINGS: LIVER: Measures 17.8 cm. Normal echogenicity of the liver parenchyma. No mass. No intrahepatic bile duct dilatation. GALLBLADDER: Gallbladder not seen. COMMON BILE DUCT: Measures 6-7 mm. Upper limits of normal. PANCREAS: Visualized portions of the pancreas appear unremarkable. RIGHT KIDNEY: Measures 12.5 x 6.3 x 4.8cm. Normal echogenicity. No calculus, mass, or hydronephrosis. LEFT KIDNEY: Not imaged. SPLEEN: Not imaged. AORTA: No aneurysmal dilatation within the visualized segments of the aorta. IVC: The visualized portions of the IVC appear unremarkable. OTHER FINDINGS: The visualized segments of the portal vein appear patent. IMPRESSION: Gallbladder not seen. Upper limits normal size of the common bile duct measuring 6-7 millimeter. Patient has history of cholecystectomy on 10/19/2016.
== END 2016-10-24 22:10 | disposition home or self-care (01) ==
LOC: H.ER 16:43
DX: R10.13 Epigastric pain (principal); G89.18 Other acute postprocedural pain; R07.89 Other chest pain; R06.02 Shortness of breath; K59.00 Constipation, unspecified; Z90.49 Acquired absence of other specified parts of digestive tract

== ENCOUNTER 2016-11-03 16:57 | Emergency (ER) | payer MEDICAID ==
[2016-11-03 16:57] VITALS: BMI 25.1
[2016-11-03 17:16] VITALS: BP 109/71; PULSE 90; RESP 18; TEMP 98.1; O2SAT 99
--- NOTE | 2016-11-03 17:40 | ED PDOC ---
HPI: Abdomen Time Seen by Provider: 11/03/16 17:39 Chief Complaint (Nursing): Abdominal Pain Chief Complaint (Provider): abdominal pain History Per: Patient Additional Complaint(s): 30-year-old female status post cholecystectomy completed on October [address] Chaves presents to emergency department with abdominal pain and green colored diarrhea since yesterday. Patient states that she vomited once yesterday as well. Patient denies fever or chills. She is tolerating liquids and solids and states that she is passing gas. Patient has not had a normal solid bowel movement in over a week. She tried to call the surgeon but was unable to reach the office and was told to come to ED. Past Medical History Reviewed: Historical Data, Nursing Documentation, Vital Signs Vital Signs: Last Vital Signs Temp 98.1 F 11/03/16 17:12 Pulse 90 11/03/16 17:12 Resp 18 11/03/16 17:12 BP 109/71 11/03/16 17:12 Pulse Ox 99 11/03/16 19:12 - Medical History PMH: Back Problems, Migraine - Surgical History Surgical History: Cholecystectomy - Family History Family History: States: No Known Family Hx - Living Arrangements Living Arrangements: With Family - Social History Current smoker - smoking cessation education provided: Yes Alcohol: None Drugs: Denies - Home Medications Home Medications: Ambulatory Orders Medication Instructions Recorded Docusate Sodium [Colace] 100 mg PO BID #30 capsule 10/20/16 oxyCODONE/Acetaminophen [Percocet 2 tab PO Q4 PRN tab 10/20/16 5/325 mg Tab] Polyethylene Glycol 3350 [Miralax] 17 gm PO DAILY PRN #1 bottle 10/24/16 oxyCODONE/Acetaminophen [Percocet 1 tab PO QID PRN #20 tab 10/24/16 5/325 mg Tab] - Allergies Allergies/Adverse Reactions: Allergies Allergy/AdvReac Type Severity Reaction Status Date / Time No Known Allergies Allergy Verified 10/17/16 20:26 Review of Systems ROS Statement: Except As Marked, All Systems Reviewed And Found Negative Constitutional: Negative for: Fever, Chills Cardiovascular: Negative for: Chest Pain Respiratory: Negative for: Cough, Shortness of Breath Gastrointestinal: Positive for: Nausea, Vomiting, Abdominal Pain, Diarrhea, Constipation Genitourinary Female: Negative for: Dysuria Physical Exam - Reviewed Nursing Documentation Reviewed: Yes Vital Signs Reviewed: Yes - Physical Exam Appears: Positive for: Well, Non-toxic, No Acute Distress Skin: Negative for: Rash Eye Exam: Positive for: Normal appearance, EOMI, PERRL Cardiovascular/Chest: Positive for: Regular Rate, Rhythm Respiratory: Positive for: Normal Breath Sounds Gastrointestinal/Abdominal: Positive for: Tenderness (Mild diffuse tenderness to abdomen with no distention or guarding, surgical incisions are clean, dry and intact, no rebound) Back: Negative for: L CVA Tenderness, R CVA Tenderness Extremity: Positive for: Normal ROM Neurologic/Psych: Positive for: Alert, Oriented - Laboratory Results Result Diagrams: 11/03/16 18:32 11/03/16 18:32 Urine POC: Negative - ECG O2 Sat by Pulse Oximetry: 99 Pulse Ox Interpretation: Normal Medical Decision Making Medical Decision Makin-year-old female with postoperative pain. Plan: CBC CMP Lipase Urine dip IV fluids Case was d/w Dr. Sams covering for Dr. Chaves who states to contact surgical pathologist to see patient. Resident came to bedside, states to order RUQ US. Disposition - Clinical Impression Clinical Impression: Post-op pain, Abdominal pain - Patient ED Disposition Is Patient to be Admitted: Transfer of Care - Disposition Disposition: Transfer of Care Disposition Time: 20:00 Condition: STABLE Patient Signed Over To: Rudy Murillo Handoff Comments: Signed out pending, US, urine, resident re-evaluation and final disposition Results - Lab Results Lab Results: 11/03/16 11/03/16 18:32 18:32 WBC 7.0 RBC 4.73 Hgb 12.9 Hct 40.6 MCV 85.9 MCH 27.3 MCHC 31.7 L RDW 13.5 Plt Count 245 MPV 8.4 Neut % (Auto) 62.8 Lymph % (Auto) 28.5 [place] % (Auto) 6.5 Eos % (Auto) 1.3 Baso % (Auto) 0.9 Neut # 4.4 Lymph # 2.0 [place] # 0.5 Eos # 0.1 Baso # 0.1 Sodium 141 Potassium 4.5 Chloride 106 Carbon Dioxide 27 Anion Gap 13 BUN 15 Creatinine 0.7 Est GFR ( Amer) > 60 Est GFR (Non-Af Amer) > 60 Random Glucose 91 Calcium 9.3 Total Bilirubin 0.7 AST 18 ALT 32 Alkaline Phosphatase 54 Total Protein 7.7 Albumin 4.3 Globulin 3.4 Albumin/Globulin Ratio 1.2 Lipase 70
[2016-11-03] MEDS ORDERED: Sodium Chloride 0.9% 1,000 ML IV STA (18:34)
[2016-11-03 18:49] LABS: BASO # 0.1 K/uL (0.0-0.2); BASO % 0.9 % (0.0-2.0); EOS # 0.1 K/uL (0.0-0.7); EOS % 1.3 % (0.0-4.0); HEMOGLOBIN 12.9 g/dL (12.0-16.0); LYMPH % 28.5 % (20.0-40.0); MEAN CELL VOLUME 85.9 fl (81.0-99.0); MEAN CORPUSCULAR HEMOGLOBIN 27.3 pg (27.0-31.0); MEAN CORPUSCULAR HGB CONC 31.7 g/dL (33.0-37.0); MEAN PLATELET VOLUME 8.4 fl (7.2-11.7); MONO # 0.5 K/uL (0.0-0.8); MONO % 6.5 % (0.0-10.0); NEUT # 4.4 K/uL (1.8-7.0); NEUT % 62.8 % (50.0-75.0); RBC 4.73 Mil/uL (3.80-5.20); RED CELL DISTRIBUTION WIDTH 13.5 % (11.5-14.5)
[2016-11-03 19:00] LABS: ALB/GLOB RATIO 1.2 (1.0-2.1); ALBUMIN 4.3 g/dL (3.5-5.0); ALT/SGPT 32 U/L (9-52); AST/SGOT 18 U/L (14-36); BLOOD UREA NITROGEN 15 mg/dl (7-17); CALCIUM 9.3 mg/dL (8.4-10.2); GFR AFRICAN-AMERICAN > 60; GFR NON-AFRICAN AMERICAN > 60; LIPASE 70 U/L (23-300)
--- NOTE | 2016-11-03 21:29 | CP.PCM.CON ---
History of Present Illness - History of Present Illness History of Present Illness: General Surgery Consult Note. Dr. Catalan. CC: Abdominal pain 30yo F with no significant PMHx here for evaluation of abdominal pain. Patient states that she has been having crampy, burning abdominal pain located in the epigastric area and RUQ abdominal pain. She states that the pain is 4/10 and it comes and goes. It is worse after eating food. She states that the pain has been going on since her recent cholecystectomy on 10/19, it has been waxing and waning in quality. She uses percocet for pain management at home with some relief. She returned to the ER on 10/24 with similar pain symptoms. She does report some nausea, no vomiting. She reports green colored stools for the past two days, denies diarrhea or loose stools, No dark stools or bloody stools. She denies any fever or chills. No Chest pain, no shortness of breath. No headaches. Denies any pain at the site of skin incisions, no discharge or drainage. PMHx: Denies PSHx: Lap Cholecystectomy by Dr. Catalan on 10/19/16 Social Hx: Current 1 pack every 4 days smoker, resumed smoking cigarrets 2 days post-operatively. Denies any ETOH use. Denies any illicit drug use. NKDA Review of Systems - Review of Systems All systems: reviewed and no additional remarkable complaints except - Constitutional Constitutional: absent: Chills, Fever - EENT Ears: absent: Dizziness - Cardiovascular Cardiovascular: absent: Chest Pain, Dyspnea - Respiratory Respiratory: absent: Dyspnea - Gastrointestinal Gastrointestinal: Abdominal Pain, Nausea. absent: Diarrhea, Melena, Vomiting - Neurological Neurological: absent: Dizziness, Headaches Past Patient History - Past Medical History & Family History Past Medical History?: Yes - Past Social History Alcohol: None Drugs: Denies - CARDIAC Hx Cardiac Disorders: No - PULMONARY Hx Respiratory Disorders: No - NEUROLOGICAL Hx Migraine: Yes - HEENT Hx HEENT Problems: No - RENAL Hx Chronic Kidney Disease: No - ENDOCRINE/METABOLIC Hx Endocrine Disorders: No - HEMATOLOGICAL/ONCOLOGICAL Hx Blood Disorders: No - INTEGUMENTARY Hx Dermatological Problems: No - MUSCULOSKELETAL/RHEUMATOLOGICAL Hx Musculoskeletal Disorders: No - GENITOURINARY/GYNECOLOGICAL Hx Genitourinary Disorders: No - PSYCHIATRIC Hx Psychophysiologic Disorder: No Hx Substance Use: No - SURGICAL HISTORY Hx Cholecystectomy: Yes - ANESTHESIA Hx Anesthesia: No Hx Anesthesia Reactions: No Meds Allergies/Adverse Reactions: Allergies Allergy/AdvReac Type Severity Reaction Status Date / Time No Known Allergies Allergy Verified 10/17/16 20:26 Physical Exam - Constitutional Appears: Well, No Acute Distress - Head Exam Head Exam: ATRAUMATIC, NORMAL INSPECTION, NORMOCEPHALIC - Eye Exam Eye Exam: EOMI, Normal appearance - ENT Exam ENT Exam: Mucous Membranes Moist - Respiratory Exam Respiratory Exam: NORMAL BREATHING PATTERN - GI/Abdominal Exam GI & Abdominal Exam: Soft Additional comments: Tender to palpation in the epigastric area. Tender to palpation in RUQ. No Sevilla's sign. No rebound. No distention. Does have voluntary guarding. Post-surgical skin incisions x4 noted with skin edges well approximated. No erythema, no discharge, no drainage. - Extremities Exam Extremities exam: Positive for: normal inspection. Negative for: calf tenderness - Neurological Exam Neurological exam: Alert, Oriented x3 - Psychiatric Exam Psychiatric exam: Normal Affect, Normal Mood - Skin Skin Exam: Dry, Intact, Normal Color, Warm Results - Vital Signs Recent Vital Signs: Last Vital Signs Temp 98.1 F 11/03/16 17:12 Pulse 90 11/03/16 17:12 Resp 18 11/03/16 17:12 BP 109/71 11/03/16 17:12 Pulse Ox 99 11/03/16 19:55 - Labs Result Diagrams: 11/03/16 18:32 11/03/16 18:32 Labs: Laboratory Results - last 24 hr 11/03/16 11/03/16 18:32 18:32 WBC 7.0 RBC 4.73 Hgb 12.9 Hct 40.6 MCV 85.9 MCH 27.3 MCHC 31.7 L RDW 13.5 Plt Count 245 MPV 8.4 Neut % (Auto) 62.8 Lymph % (Auto) 28.5 Dent % (Auto) 6.5 Eos % (Auto) 1.3 Baso % (Auto) 0.9 Neut # 4.4 Lymph # 2.0 Dent # 0.5 Eos # 0.1 Baso # 0.1 Sodium 141 Potassium 4.5 Chloride 106 Carbon Dioxide 27 Anion Gap 13 BUN 15 Creatinine 0.7 Est GFR ( Amer) > 60 Est GFR (Non-Af Amer) > 60 Random Glucose 91 Calcium 9.3 Total Bilirubin 0.7 AST 18 ALT 32 Alkaline Phosphatase 54 Total Protein 7.7 Albumin 4.3 Globulin 3.4 Albumin/Globulin Ratio 1.2 Lipase 70 Assessment & Plan - Assessment and Plan (Free Text) Assessment: 30yo F s/p Lap Cholecystectomy on 10/19/16. POD 15 - No Leukocytosis, No fever. VSS - No LFT abnormalities - Abd US (vRADs read) - No fluid in the GB fossa. CBD 5.3mm. 9mm simple cyst in left liver lobe. Unremarkable exam - Probable gastritis. Recommend oral PPI therapy - Patient is cleared for discharge from surgical standpoint. Follow up with Dr. Catalan in clinic in one week. (Call for appointment) Discussed case with Dr. Hossein Dominguez PGY1
--- NOTE | 2016-11-03 21:39 | ED PDOC ---
- Laboratory Results Result Diagrams: 11/03/16 18:32 11/03/16 18:32 Urine POC: Negative - ECG O2 Sat by Pulse Oximetry: 99 - Progress ED Course And Treament: Abd US: Cholecystectomy. No gallbladder fossa fluid collection identified. 9 mm simple cyst left lobe of the liver. Pt. re-evaluated by Khalif, surgical supply assistant, who discussed results with Dr. Catalan who cleared pt. for discharge. On my initial evaluation pt. in no distress but stats toradol has not provided any relief. Morphine 2mg IV, zofran 4mg IV given. On my second evaluation, pt. reports good relief of pain. Informed of results and need for f/u. Further states that she does not sleep well and does eat throughout the night and is a smoker. Reports a hx of GERD in the past but has not been on any medications. Disposition - Clinical Impression Clinical Impression: Post-op pain, Abdominal pain - POA Present On Arrival: None - Disposition Referrals: Po Catalan MD [Staff Provider] - Christian Peters MD, PhD [Staff Provider] - Disposition: Routine/Home Disposition Time: 21:30 Condition: IMPROVED Additional Instructions: Follow up with Dr. Catalan as instructed. Follow up with Dr. Peters for further evaluation. Prescriptions: Aluminum Hydroxide/Magnesium H [Maalox 30 ml] 30 ml PO Q8 PRN #1 bottle PRN Reason: abdominal pain Famotidine [Pepcid] 20 mg PO DAILY PRN #30 tab PRN Reason: Dyspepsia Instructions: Acute Abdominal Pain (ED) Print Language: DIVEHI
--- NOTE | 2016-11-04 10:22 | US ---
HISTORY: s/p GB removal, pain, Attention RUQ COMPARISON: None. TECHNIQUE: Grayscale imaging was performed. FINDINGS: LIVER: Measures 16.8 cm in length. Normal echogenicity of the liver parenchyma. There is a 9 mm simple cyst in the left hepatic lobe. No mass. No intrahepatic bile duct dilatation. GALLBLADDER: Surgically absent. COMMON BILE DUCT: Measures 5.3 mm. No stones. No dilatation. PANCREAS: Unremarkable as visualized. No mass. No ductal dilatation. RIGHT KIDNEY: Measures 11.8 cm in length. Normal echogenicity. No calculus, mass, or hydronephrosis. AORTA: No aneurysmal dilatation. IVC: Unremarkable. OTHER FINDINGS: None . IMPRESSION: Status post cholecystectomy, mild dilatation of the common bile duct is in keeping with postcholecystectomy status.
== END 2016-11-03 22:00 | disposition home or self-care (01) ==
LOC: H.ER 16:57
DX: G89.18 Other acute postprocedural pain (principal); Z90.49 Acquired absence of other specified parts of digestive tract